=== PATIENT | female | born 1935 | race Caucasian/White ===

== ENCOUNTER → 2016-04-28 | Outpatient (CLI) | payer MEDICARE, BC ==
--- NOTE | 2016-04-28 16:44 | NM ---
EXAMINATION: Nuclear medicine myocardial perfusion study HISTORY: Heart disease. PROCEDURE: Following intravenous administration of 0.4 mg of Lexiscan and 27.5 mCi of technetium 99m sestamib i, stress SPECT images including gating imaging was performed. FINDINGS: Stress myocardial SPECT images demonstrates a small area of moderately decreased perfusion along the anteroseptal wall involving the midportion. Review of gated images demonstrates normal wall motion, contractility and wall thickening. The left ventricular ejection fraction is 73 %. The left ventricular chamber size is normal. IMPRESSION: 1. Focal area of decreased perfusion along the anterior wall, correlate with rest imaging. 2. Normal ventricular chamber size and function with ejection fraction of 73 %.
--- NOTE | 2016-04-28 20:24 | PCM.PRNOTE ---
- Free Text/Narrative Note: Patient was supervised today during infusion portion of the stress test. The patient received Regadenoson 0.4 mg IV and nuclear agent using standard protocol. Baseline blood pressure is 172/70 with a heart rate 63 EKG sinus rhythm without ST abnormalities Vital signs at injection: Peak blood pressure 169/66 with a heart rate of 81 Vital signs at 4 minutes post injection: Peak blood pressure 168/68 with a heart rate of 70 EKG sinus rhythm without further ST changes Patient complains of abdominal cramps and headaches spontaneously resolved Adverse effects from Lucille scan none Test done due to end of protocol Impression 1. electrocardiographically nondiagnostic for ischemia due to chemical protocol 2. nuclear imaging pending
--- NOTE | 2016-04-29 10:39 | PCM.PRNOTE ---
- Free Text/Narrative Note: Entry in error
== END ==
LOC: MW.NM 08:31
PROVIDERS: ATTEND Nurse Practitioner Family
DX: I25.119 Atherosclerotic heart disease of native coronary artery with unspecified angina pectoris (principal); I25.10 Atherosclerotic heart disease of native coronary artery without angina pectoris
CPT/HCPCS: 78451; 93017; A9500; J2785

== ENCOUNTER → 2016-06-08 | Outpatient (CLI) | payer MEDICARE, BC | LOC: MW.CHNEURO 08:00 | PROVIDERS: ATTEND Psychiatry & Neurology Neuromuscular Medicine | DX: G62.9 Polyneuropathy, unspecified (principal) | CPT/HCPCS: 99204 ==

== ENCOUNTER 2016-06-11 10:15 | Emergency (ER) | payer MEDICARE, BC ==
[2016-06-11] MEDS ORDERED: Sodium Chloride 0.9% 1,000 ML IV ONE (10:22)
[2016-06-11 11:00] LABS: CHLORIDE,CL 106 mmol/L (98-110); SODIUM,NA 141 mmol/L (136-146)
--- NOTE | 2016-06-11 11:11 | EDM.PDOC ---
ED HISTORY OF PRESENT ILLNESS - General Chief Complaint: Cardiovascular Problem Stated Complaint: LEFT LEG SWOLLEN AND PAINFUL Time Seen by Provider: 06/11/16 10:40 Source of Information: Reports: Patient History Limitations: Reports: No limitations - History of Present Illness INITIAL COMMENTS - FREE TEXT/NARRATIVE: History of present illness: [80-year-old female presenting from [facility] with decreased O2 saturations and protracted history of problems with DVTs and history of PE. Apparently clinic did call and give a brief report about the patient and sent him here and patient reiterated the same history of bedside. Patient was 88% on room air and with 3 L of O2 increased into the mid 90% .] Review of systems: As per history of present illness and below otherwise all systems reviewed and negative. Past medical history: As per history of present illness and as reviewed below otherwise noncontributory. Surgical history: As per history of present illness and as reviewed below otherwise noncontributory. Social history: No reported history of drug or alcohol abuse. Family history: As per history of present illness and as reviewed below otherwise noncontributory. Physical exam: HEENT: Atraumatic, normocephalic, pupils reactive, negative for conjunctival pallor or scleral icterus, mucous membranes moist, throat clear, neck supple, nontender, trachea midline. Lungs: Clear to auscultation, breath sounds equal bilaterally, noted to be slightly diminished, chest nontender. Heart: S1S2, regular, negative for clicks, rubs, or JVD. Abdomen: Soft, nondistended, nontender. Negative for masses or hepatosplenomegaly. Negative for costovertebral tenderness. Pelvis: Stable nontender. Genitourinary: Deferred. Rectal: Deferred. Extremities: Atraumatic, negative for cords or calf pain. Neurovascular unremarkable. Neuro: Awake, alert, oriented. Cranial nerves II through XII unremarkable. Cerebellum unremarkable. Motor and sensory unremarkable throughout. Exam nonfocal. Diagnostics: [CBC, CMP, d-dimer, CTA] Therapeutics: [IV fluid] Impression: [Saddle PE] Plan: [Transferred to [facility] ER to ER Dr Branch accepting] Definitive disposition and diagnosis as appropriate pending reevaluation and review of above. - Related Data Allergies/ADRs: Allergies Allergy/AdvReac Type Severity Reaction Status Date / Time acetaminophen Allergy Disorientat Verified 06/11/16 10:24 [From Darvocet-N 100] ion hydrocodone bitartrate Allergy Nausea and Verified 06/11/16 10:24 [From Vicoprofen] Vomiting ibuprofen [From Vicoprofen] Allergy Nausea and Verified 06/11/16 10:24 Vomiting Penicillins Allergy Cannot Verified 06/11/16 10:24 Remember propoxyphene napsylate Allergy Disorientat Verified 06/11/16 10:24 [From Darvocet-N 100] ion Home Meds: Home Meds Furosemide 20 mg PO DAILY 12/23/13 [History] Losartan Potassium 25 mg PO DAILY 12/23/13 [History] Metoprolol Tartrate [Lopressor] 25 mg PO BID 12/23/13 [History] Nitroglycerin [Nitrostat] 0.4 mg SL ASDIRECTED PRN 12/23/13 [History] Aspirin [Adult Low Dose Aspirin EC] 81 mg PO DAILY 09/18/15 [History] atorvaSTATin [Lipitor] 20 mg PO DAILY 04/06/16 [History] Isosorbide Mononitrate [Isosorbide Mononitrate ER] 30 mg PO DAILY 04/07/16 [ History] Omeprazole 20 mg PO BID 04/07/16 [History] Citalopram [Celexa] 10 mg PO DAILY 06/11/16 [History] Hydrochlorothiazide 25 mg PO DAILY 06/11/16 [History] Past Medical History HEENT History: Reports: Cataract Other HEENT History: wears glasses Cardiovascular History: Reports: CAD, High cholesterol, Hypertension, Stents Other Cardiovascular History: Anti-coagulant therapy since for DVT (Rt. leg ) associated with PE Respiratory History: Reports: None Gastrointestinal History: Reports: GERD, Hiatal hernia Other Gastrointestinal History: Heartburn Genitourinary History: Reports: Renal calculus Other Genitourinary History: Recent anti-biotic for UTI's and 'dark colored urine' [employer] History: Reports: None Musculoskeletal History: Reports: Fracture Other Musculoskeletal History: bilateral wrists Neurological History: Reports: None Psychiatric History: Reports: None Other Psychiatric History: Reports some anxiety of recent Endocrine/Metabolic History: Reports: None Hematologic History: Reports: Blood transfusion(s) Immunologic History: Reports: None Oncologic (Cancer) History: Reports: Basal cell carcinoma, Breast Dermatologic History: Reports: None - Infectious Disease History Infectious Disease History: Reports: Chicken pox, Measles, Mumps - Past Surgical History Head Surgeries/Procedures: Reports: None Other Cardiovascular Surgeries/Procedures: 2 stents placed in July 2013, no chest pain or SOB since Other Female Surgeries/Procedures: bilateral Mastectomy, bilateral S&O Other Musculoskeletal Surgeries/Procedures:: right wrist Other Oncologic Surgeries/Procedures: lesion removed from nose Social & Family History - Family History Family Medical History: Noncontributory - Tobacco Use Smoking Status *Q: Never Smoker Second Hand Smoke Exposure: No - Caffeine Use Caffeine Use: Reports: None - Alcohol Use Days Per Week of Alcohol Use: 0 Number of Drinks Per Day: 0 Total Drinks Per Week: 0 - Recreational Drug Use Recreational Drug Use: No Drug Use in Last 12 Months: No ED ROS GENERAL - Review of Systems Review Of Systems: See Below (The history of present illness) ED EXAM, GENERAL - Physical Exam Exam: See Below (See history of present illness) Course - Vital Signs Last Recorded V/S: Last Vital Signs Temp 36.6 C 06/11/16 12:56 Pulse 65 06/11/16 13:45 Resp 16 06/11/16 13:45 BP 166/71 H 06/11/16 13:45 Pulse Ox 97 06/11/16 13:45 - Orders/Labs/Meds Orders: Active Orders 24 hr Category Date Time Status Heparin 74669 Units in D5W @ 15 Units/KG/HR (500ml) Med 06/11/16 14:00 Ordered Premix Heparin Sodium/D5W [Heparin 25,000 Units in D5W 500 ML] 500 ml IV TITRATE Medication Orders Heparin Sodium/Dextrose (Heparin 25,000 Units In D5w 500 Ml) 500 mls @ 24.222 mls/hr IV TITRATE DEVORAH; 15 UNITS/KG/HR PRN Reason: Protocol Labs: Laboratory Tests 06/11/16 06/11/16 06/11/16 Range/Units 10:30 10:30 10:30 WBC 14.00 H (4.0-11.0) K/uL RBC 4.87 (4.30-5.90) M/uL Hgb 13.6 (12.0-16.0) g/dL Hct 44.0 (36.0-46.0) % MCV 90.3 (80.0-98.0) fL MCH 27.9 (27.0-32.0) pg MCHC 30.9 L (31.0-37.0) g/dL RDW Std Deviation 51.5 (28.0-62.0) fl RDW Coeff of Jo Ann 16 H (11.0-15.0) % Plt Count 136 L (150-400) K/uL MPV 11.50 (7.40-12.00) fL Neut % (Auto) 73.6 (48.0-80.0) % Lymph % (Auto) 10.5 L (16.0-40.0) % Butts % (Auto) 14.0 (0.0-15.0) % Eos % (Auto) 1.6 (0.0-7.0) % Baso % (Auto) 0.3 (0.0-1.5) % Neut # (Auto) 10.3 H (1.4-5.7) K/uL Lymph # (Auto) 1.5 (0.6-2.4) K/uL Butts # (Auto) 2.0 H (0.0-0.8) K/uL Eos # (Auto) 0.2 (0.0-0.7) K/uL Baso # (Auto) 0.0 (0.0-0.1) K/uL Nucleated RBC % 0.0 /100WBC Nucleated RBCs # 0 K/uL D-Dimer, Quantitative 18.71 H (0.0-0.52) mg/LFEU Sodium 141 (136-146) mmol/L Potassium 4.0 (3.5-5.1) mmol/L Chloride 106 (98-110) mmol/L Carbon Dioxide 24 (21-31) mmol/L BUN 13 (6.0-23.0) mg/dL Creatinine 0.9 (0.6-1.5) mg/dL Est Cr Clr Drug Dosing 45.89 mL/min Estimated GFR (MDRD) > 60.0 ml/min Glucose 118 H (60-110) mg/dL Calcium 9.7 (8.8-10.8) mg/dL Total Bilirubin 1.4 (0.1-1.5) mg/dL AST 21 (5-40) IU/L ALT 11 (8-54) IU/L Alkaline Phosphatase 66 (40-150) Total Protein 7.8 (6.0-8.0) g/dL Albumin 4.1 (3.4-4.8) g/dL Globulin 3.7 H (2.0-3.5) g/dL Albumin/Globulin Ratio 1.1 L (1.3-2.8) Meds: Medications Generic Name Dose Route Start Last Admin Trade Name Ezraq PRN Reason Stop Dose Admin Heparin Sodium/Dextrose 500 mls @ 24.222 mls/hr 06/11/16 14:00 Heparin 25,000 Units In D5w 500 Ml IV TITRATE DEVORAH Protocol 15 UNITS/KG/HR Discontinued Medications Generic Name Dose Route Start Last Admin Trade Name Freq PRN Reason Stop Dose Admin Sodium Chloride 1,000 mls @ 250 mls/hr 06/11/16 10:22 06/11/16 10:35 Normal Saline IV 06/11/16 14:21 250 mls/hr STAT ONE Administration Iopamidol 50 ml 06/11/16 12:02 06/11/16 12:03 Isovue Multipack-370 (76%) IVPUSH 06/11/16 12:03 50 ml ONETIME STA Administration Departure - Departure Time of Disposition: 14:26 Disposition: DC/Tfer to Acute Hospital 02 Reason for Transfer *Q: Other (Higher level of care) Condition: good Clinical Impression: Pulmonary emboli Qualifiers: Pulmonary embolism type: saddle Chronicity: acute Acute cor pulmonale presence : without acute cor pulmonale Qualified Code(s): I26.92 - Saddle embolus of pulmonary artery without acute cor pulmonale Forms: ED Department Discharge - My Orders Last 24 Hours: My Active Orders 06/11/16 14:00 Heparin 20122 Units in D5W @ 15 Units/KG/HR (500ml) Premix Heparin Sodium/D5W [ Heparin 25,000 Units in D5W 500 ML] 500 ml IV TITRATE - Assessment/Plan Last 24 Hours: My Active Orders 06/11/16 14:00 Heparin [id number] Units in D5W @ 15 Units/KG/HR (500ml) Premix Heparin Sodium/D5W [ Heparin 25,000 Units in D5W 500 ML] 500 ml IV TITRATE
[2016-06-11] MEDS ORDERED: Iopamidol 755 MG/ML 500 ML Multipack Bottle IVPUSH STA (12:02)
--- NOTE | 2016-06-11 13:39 | CT ---
EXAMINATION: CTA chest HISTORY: Evaluate for PE COMPARISON: Radiographs dated 04/06/2016 TECHNIQUE: Axial CT images obtained through the chest following the administration of 50 mL of Isovu e-370. Coronal and sagittal reconstructions obtained. FINDINGS: Scattered interstitial prominence and reticulation noted most prominent within the lung ba ses. No pleural effusion or pneumothorax. There is a large saddle embolus noted within the pulmonary arteries. Thoracic aorta is normal in caliber. The the RV and LV ratio is 1.4. There is a large hia balaji hernia. No mediastinal, hilar, or axillary lymphadenopathy. Coronary artery calcifications are n oted. The central airways are clear. The visualized images of the upper abdomen appear otherwise unremarkable. No suspicious osseous abno rmalities identified. IMPRESSION: 1. Large saddle pulmonary embolism. 2. Enlarged right ventricle suggesting underlying right heart strain. 3. Large hiatal hernia. 4. Chronic pulmonary interstitial prominence.
[2016-06-11 13:46] VITALS: BP 166/71
[2016-06-11] MEDS ORDERED: Heparin Sodium/D5W 500 ML IV SCH (14:00)
== END 2016-06-11 14:42 ==
LOC: MW.ED 10:15
DX: I26.92 Saddle embolus of pulmonary artery without acute cor pulmonale (principal); I25.10 Atherosclerotic heart disease of native coronary artery without angina pectoris; E78.00 Pure hypercholesterolemia, unspecified; I10 Essential (primary) hypertension; K21.9 Gastro-esophageal reflux disease without esophagitis; Z98.890 Other specified postprocedural states; Z88.6 Allergy status to analgesic agent; Z88.0 Allergy status to penicillin; Z88.5 Allergy status to narcotic agent; Z79.899 Other long term (current) drug therapy; Z79.82 Long term (current) use of aspirin
CPT/HCPCS: 71275; 80053; 85025; 85379; 96360; 96361; 99285; J7040; Q9967; 99283

== ENCOUNTER 2016-12-24 11:26 | Day surgery (SDC) | payer MEDICARE, BC ==
[2016-12-24] MEDS ORDERED: Ropivacaine 0.5% 5 MG/ML 30 ML SDV ONE (12:04)
[2016-12-24] MEDS ORDERED: Betamethasone Acetate/Betamethasone Sod Phosphate 30 MG/5 ML MDV ONE (12:04)
[2016-12-24] MEDS ORDERED: Lidocaine 2% 5 ML SDV ONE (12:04)
[2016-12-24] MEDS ORDERED: Iopamidol 408 MG/ML 50 ML SDV ONE (12:04)
--- NOTE | 2016-12-24 18:13 | OR ---
SURGEON: Ruthie Wing D.O. DATE OF PROCEDURE: 12/24/2016 OR STAFF PRESENT: 1. Marcus Black RN. 2. Michelle Madison RN. 3. Amy Ashraf RT. WOUND CLASSIFICATION: I. PREOPERATIVE DIAGNOSIS: Left hip osteoarthritis. POSTOPERATIVE DIAGNOSIS: Left hip osteoarthritis. PROCEDURES PERFORMED: 1. Left intraarticular hip injection. 2. Fluoroscopic guidance for needle placement. 3. Local with oral Valium for sedation. SCREENING QUESTIONS: The patient answered "No" to all the following questions: 1. Are you allergic to iodine, Betadine, or latex? 2. Do you have a bleeding disorder? 3. Do you have any joint replacements, heart valve replacements or a pacemaker? 4. Are you allergic to anti-inflammatories? 5. Are you on any blood thinners? 6. Do you have any current local or systemic infections? DESCRIPTION OF PROCEDURE: The patient had the procedure thoroughly explained including all possible risks, benefits and alternatives. Consent was signed in my clinic indicating understanding and willingness to proceed. The patient presented to [facility] and was escorted to the dressing room to disrobe and change into a hospital gown. Preoperative vital signs were taken and stable. The patient reported that Valium was taken prior to the procedure. The patient was brought to the procedure room and placed in the supine position on the procedure room table. The hip landmarks were identified for the intra- articular injection and the femoral pulse was palpated and marked. The skin was marked long term between the femoral pulse and greater trochanter for a skin wheal. The skin was sterilely prepped with ChloraPrep and draped. All personnel in the operating room were dressed in appropriate attire including surgical scrubs, head and shoe covers. This was to ensure sterility while in the treatment room. During the time fluoroscopy was in use, all personnel in the operating room wore lead lopez with thyroid collars. Sterile technique was used during the procedure. The fluoroscope was placed for the intra-articular hip injection. There were no signs of infection at the site for needle insertion. The skin was anesthetized with 2% Lidocaine with a 27-gauge 1.5 inch needle. Then using a 22-gauge 3.5 inch spinal needle, I advanced to the capsule of the hip joint, a pop was felt. Under direct fluoroscopic guidance verifying needle positioning, 0.2 cubic centimeters increments of IsoVue-200 dye was injected and shown to outline the intra-articular space. No intravascular flow pattern was observed under live fluoroscopy. After negative aspiration, a mixture of 0.5% Ropivacaine, 2% Lidocaine, and 12 milligrams of Celestone was slowly injected in small increments after negative aspiration of heme. No paresthesias were noted. The needle was cleared prior to removal from the skin and no adverse reactions were noted. The patient was then brought to the recovery room awake and in good condition by my staff. After a brief stay in the recovery room, the patient was discharged to home. Both oral and written discharge and followup instructions were given to the patient. The patient will follow up in the clinic in two to three weeks postprocedure to evaluate the efficacy. The patient verbalized understanding including understanding those signs and symptoms that would require emergency care and knows how to contact the office if there are any problems or questions in the meantime. PREOPERATIVE PAIN: 4-10/10. POSTOPERATIVE PAIN: 1/10. FOLLOWUP: Follow up in the Pain Clinic in 3 weeks. NAEEM / MUKUL /[id number]
== END 2016-12-24 13:40 ==
LOC: MW.SDS 11:26
PROVIDERS: ATTEND Anesthesiology
DX: M16.12 Unilateral primary osteoarthritis, left hip (principal); F41.9 Anxiety disorder, unspecified; F32.9 Major depressive disorder, single episode, unspecified; K21.9 Gastro-esophageal reflux disease without esophagitis; I10 Essential (primary) hypertension; E78.00 Pure hypercholesterolemia, unspecified; M17.10 Unilateral primary osteoarthritis, unspecified knee; M81.0 Age-related osteoporosis without current pathological fracture; G62.89 Other specified polyneuropathies; Z85.828 Personal history of other malignant neoplasm of skin; Z87.442 Personal history of urinary calculi; Z87.440 Personal history of urinary (tract) infections; Z85.3 Personal history of malignant neoplasm of breast; Z86.718 Personal history of other venous thrombosis and embolism; Z79.01 Long term (current) use of anticoagulants; Z79.82 Long term (current) use of aspirin; Z79.899 Other long term (current) drug therapy; Z88.0 Allergy status to penicillin; Z88.5 Allergy status to narcotic agent; Z96.649 Presence of unspecified artificial hip joint; Z98.49 Cataract extraction status, unspecified eye; Z90.10 Acquired absence of unspecified breast and nipple; Z90.49 Acquired absence of other specified parts of digestive tract; Z90.710 Acquired absence of both cervix and uterus; Z90.721 Acquired absence of ovaries, unilateral; Z98.890 Other specified postprocedural states; G62.9 Polyneuropathy, unspecified; G89.4 Chronic pain syndrome
CPT/HCPCS: 20610; G0463; J0702; J2795; Q9966

== ENCOUNTER 2020-10-10 15:36 | Inpatient (IN) | payer MEDICARE, BC ==
[2020-10-10] MEDS ORDERED: Sodium Chloride 0.9% 10 ML Syringe FLUSH PRN (16:04)
[2020-10-10] MEDS ORDERED: HYDROmorphone 1 MG/ML Syringe IVPUSH ONE (16:04)
[2020-10-10] MEDS ORDERED: Ondansetron 4 MG/2 ML SDV IVPUSH ONE (16:04)
[2020-10-10] MEDS ORDERED: Sodium Chloride 0.9% 2.5 ML Syringe FLUSH PRN (16:04)
[2020-10-10] MEDS ORDERED: Diltiazem 100 MG in Sodium Chloride 0.9% 100 ML IV SCH (16:30)
--- NOTE | 2020-10-10 17:19 | EDM.PDOC ---
ED HPI GENERAL MEDICAL PROBLEM - General Chief Complaint: Lower Extremity Injury/Pain Stated Complaint: SWOLLEN FOOT Time Seen by Provider: 10/10/20 15:58 - History of Present Illness INITIAL COMMENTS - FREE TEXT/NARRATIVE: HISTORY AND PHYSICAL: History of present illness: This is an 84-year-old female with a history significant for DVT x2 in the past with a PE, history of hip replacement, history of hypertension, history of hypercholesterolemia, history of basal cell CA of the nose, denies any history of gout, denies any history of atrial fibrillation/atrial flutter, denies any history of coronary artery disease, who presents ER today complaining of pain and swelling to her right ankle and foot x2 days. Patient denies any recent trauma or injury to her foot. Patient denies any excessive ambulation or walking. Patient denies any change in her shoes or footwear. Patient reports that she normally ambulates with a cane and has been doing so. Patient denies any history of gout. Patient denies any recent fevers, shakes, chills, nausea, vomiting, diarrhea, dysuria, frequency, urgency, chest pain, shortness of breath, abdominal pain. Patient denies any dizziness, palpitations, syncope. Patient has any history of thyroid disease. Patient denies any hemoptysis. Patient denies any Covid exposures or concerns. Patient denies any URI symptoms, cough, cold, congestion. Patient reports that she has had her Covid vaccination. Review of systems: As per history of present illness and below otherwise all systems reviewed and negative. Past medical history: As per history of present illness and as reviewed below otherwise noncontributory. Surgical history: As per history of present illness and as reviewed below otherwise noncontributory. Social history: No reported history of drug abuse. Family history: As per history of present illness and as reviewed below otherwise noncontributory. Physical exam: This patient was seen and evaluated during the 2019 SARS-CoV-2 novel coronavirus pandemic period. Community viral transmission is ongoing at time of this encounter and the emergency department is operating under pandemic response procedures. Constitutional: Patient is oriented to person, place, and time. Appears well- developed and well-nourished. No distress. HEENT: Moist mucous membranes Head: Normocephalic and atraumatic. No JVD. Eyes: Right eye exhibits no discharge. Left eye exhibits no discharge. No scleral icterus Neck: Normal range of motion. No tracheal deviation present. Cardiovascular: Regular rhythm with an accelerated rate of approximately 150 bpm. Utilizing carotid sinus massage, patient's heart rate slows to approximately 100 bpm but then speeds back up once carotid sinus massage is removed. Pulmonary: Effort normal, no respiratory distress. Abdominal: No distention Musculoskeletal: Normal range of motion Neurologic: Alert and oriented to person, place and time. Skin: [place], warm and dry. No diaphoresis. Psychiatric: Normal mood and affect. Behavior is normal. Judgment and thought content normal. Nursing note and vital signs have been reviewed Patient's ER physical exam is significant for swelling and tenderness to the right foot and ankle. Patient has no warmth, erythema. Patient has some increased swelling to the right calf. Diagnostics: Ultrasound of right lower extremity: No DVT Therapeutics: Assessment and plan: This is a 84-year-old female who presents to the ER today complaining of right ankle foot pain and was noted to be markedly tachycardic. An EKG obtained reveals the patient is in SVT with a heart rate of 145. Carotid sinus massage was performed while patient was on the monitor which unmasked flutter waves when the ventricular rate was slowed to approximately 100 bpm. Patient still had flutter waves at approximately 300/min. After carotid sinus massage was removed patient's heart rate sped back up to under 50 bpm. 1. With regards to the patient's right foot and ankle pain, etiology of this is unclear at this time. It may be related to gout or arthritis. May be related to an occult injury at the patient does not recall. Patient had an ultrasound of her right lower extremity which revealed no evidence of acute DVT. Patient's physical exam reveals no concerning evidence for cellulitis or septic joint. Patient has been given Zofran and Dilaudid 0.5 mg IV to assist with pain control during the ultrasound. Patient will have labs drawn including a uric acid (although of low sensitivity and specificity for gout). 6:39 PM: Patient has a x-ray that reveals a possible lateral cuneiform and navicular bone cortical irregularity. I have read discussed with the patient and she does not recall injuring it recently. Patient is tender over those bones on exam with soft tissue swelling laterally. I will obtain a CT scan of the foot given that the patient does not recall having any injury to her foot or ankle. Again I have low suspicion with a septic joint given that the patient does not have any fever, warmth, erythema to her ankle. Patient does have edema and tenderness with active and passive range of motion. 2. With regard to the patient's SVT it appears to be most consistent with atrial flutter with RVR. Patient will have basic labs drawn including a troponin, CBC, CMP, BNP, TSH. Patient will get started on Cardizem IV to assist with rate control will need to be admitted to the hospital. 6:39 PM: Patient currently the heart rate of 100 on Cardizem 10 mg/h IV. 3. Elevated WBC count. Etiology of which is unclear but may be related to her SVT. Patient will have a urinalysis as well as a chest x-ray added. We will obtain a CT scan of the right foot. Case was discussed with Dr. Montoya who is agreed to assist this with inpatient care of this patient. Definitive disposition and diagnosis as appropriate pending reevaluation and review of above. Right Foot Pain Score (Numeric/FACES): 10 - Related Data Allergies Allergy/AdvReac Type Severity Reaction Status Date / Time acetaminophen Allergy Disorientat Verified 10/10/20 15:55 [From Darvocet-N 100] ion hydrocodone bitartrate Allergy Nausea and Verified 10/10/20 15:55 [From Vicoprofen] Vomiting ibuprofen [From Vicoprofen] Allergy Nausea and Verified 10/10/20 15:55 Vomiting Penicillins Allergy Cannot Verified 10/10/20 15:55 Remember propoxyphene napsylate Allergy Disorientat Verified 10/10/20 15:55 [From Darvocet-N 100] ion Home Meds: Home Meds Furosemide 20 mg PO DAILY 12/23/13 [History] Losartan Potassium 25 mg PO DAILY 12/23/13 [History] Metoprolol Tartrate [Lopressor] 25 mg PO BID 12/23/13 [History] Nitroglycerin [Nitrostat] 0.4 mg SL ASDIRECTED PRN 12/23/13 [History] Aspirin [Adult Low Dose Aspirin EC] 81 mg PO DAILY 09/18/15 [History] atorvaSTATin [Lipitor] 20 mg PO DAILY 04/06/16 [History] Isosorbide Mononitrate [Isosorbide Mononitrate ER] 30 mg PO DAILY 04/07/16 [History] Omeprazole 20 mg PO BID 04/07/16 [History] Citalopram [Celexa] 10 mg PO DAILY 06/11/16 [History] Hydrochlorothiazide 25 mg PO DAILY 06/11/16 [History] Past Medical History HEENT History: Reports: Cataract Other HEENT History: wears glasses Cardiovascular History: Reports: CAD, High Cholesterol, Hypertension, Stents Other Cardiovascular History: Anti-coagulant therapy since for DVT (Rt. leg) associated with PE Respiratory History: Reports: None Gastrointestinal History: Reports: GERD, Hiatal Hernia Other Gastrointestinal History: Heartburn Genitourinary History: Reports: Renal Calculus Other Genitourinary History: Recent anti-biotic for UTI's and 'dark colored urine' POUL[employer]IMMER History: Reports: None Musculoskeletal History: Reports: Fracture Other Musculoskeletal History: bilateral wrists Neurological History: Reports: None Psychiatric History: Reports: None Other Psychiatric History: Reports some anxiety of recent Endocrine/Metabolic History: Reports: None Hematologic History: Reports: Blood Transfusion(s) Immunologic History: Reports: None Oncologic (Cancer) History: Reports: Basal Cell Carcinoma, Breast Dermatologic History: Reports: None - Infectious Disease History Infectious Disease History: Reports: Chicken Pox, Measles, Mumps - Past Surgical History Head Surgeries/Procedures: Reports: None HEENT Surgical History: Reports: Cataract Surgery Other HEENT Surgeries/Procedures: Left cataract with implant Cardiovascular Surgical History: Reports: Coronary Artery Stent Other Cardiovascular Surgeries/Procedures: 2 stents placed in July 2013, no chest pain or SOB since Respiratory Surgical History: Reports: None GI Surgical History: Reports: Colostomy Female Surgical History: Reports: Mastectomy Other Female Surgeries/Procedures: bilateral Mastectomy, bilateral S&O Endocrine Surgical History: Reports: None Musculoskeletal Surgical History: Reports: Hip Replacement, ORIF Other Musculoskeletal Surgeries/Procedures:: right wrist Oncologic Surgical History: Reports: Biopsy of Breast, Mastectomy Other Oncologic Surgeries/Procedures: lesion removed from nose Social & Family History - Family History Family Medical History: No Pertinent Family History - Caffeine Use Caffeine Use: Reports: None - Recreational Drug Use Recreational Drug Use: No Review of Systems - Review of Systems Review Of Systems: See Below ED EXAM, GENERAL - Physical Exam Exam: See Below #1 Interpretation EKG Interpretation Comments: October 10, 2020 4 PM date of EKG EKG: As interpreted by ER physician: Lidia: Nonspecific ST-T wave abnormalities Normal axis Left bundle branch block Prolonged QRS No evidence of ST elevation OK Atrial flutter with a heart rate of 145 Course - Vital Signs Last Recorded V/S: Last Vital Signs Temp 98.6 F 10/10/20 18:30 Pulse 140 H 10/10/20 18:21 Resp 18 10/10/20 18:21 BP 111/72 10/10/20 18:21 Pulse Ox 97 10/10/20 18:21 - Orders/Labs/Meds Orders: Active Orders 24 hr Category Date Time Status Patient Status [ADT] Routine ADT 10/10/20 18:36 Ordered EKG 12 Lead [EKG Documentation Completion] [RC] STAT Care 10/10/20 16:37 Active Chest 2V [CR] Stat Exams 10/10/20 18:34 Ordered Foot wo Cont Rt [CT] Stat Exams 10/10/20 18:35 Ordered B-TYPE NATRIURETIC PEPTIDE,BNP [CHEM] Stat Lab 10/10/20 17:15 Received UA W/PEDRO RFLX IF INDICATED [URIN] Stat Lab 10/10/20 18:35 Ordered Diltiazem [Cardizem] 100 mg Med 10/10/20 16:30 Active Sodium Chloride 0.9% [Normal Saline] 100 ml IV NOW Sodium Chloride 0.9% [Saline Flush] Med 10/10/20 16:04 Active 10 ml FLUSH ASDIRECTED PRN Sodium Chloride 0.9% [Saline Flush] Med 10/10/20 16:04 Active 2.5 ml FLUSH ASDIRECTED PRN DME for Discharge [COMM] Stat Oth 10/10/20 18:38 Ordered DME for Discharge [COMM] Stat Oth 10/10/20 18:39 Ordered Saline Lock Insert [OM.PC] Stat Oth 10/10/20 16:04 Ordered Medication Orders Diltiazem HCl 100 mg/ Sodium (Chloride) 100 mls @ 5 mls/hr IV NOW [facility]; Protocol Last Titration: 10/10/20 18:25 Dose: 10 mg/hr, 10 mls/hr Documented by: Admin: 10/10/20 17:16 Dose: 5 mg/hr, 5 mls/hr Documented by: CHARLENE Sodium Chloride (Sodium Chloride 0.9% 10 Ml Syringe) 10 ml FLUSH ASDIRECTED PRN PRN Reason: Keep Vein Open Last Admin: 10/10/20 17:16 Dose: 10 ml Documented by: CHARLENE Sodium Chloride (Sodium Chloride 0.9% 2.5 Ml Syringe) 2.5 ml FLUSH ASDIRECTED PRN PRN Reason: Keep Vein Open Last Admin: 10/10/20 17:16 Dose: 2.5 ml Documented by: CHARLENE Labs: Laboratory Tests 10/10/20 10/10/20 10/10/20 Range/Units 17:15 17:15 17:15 WBC 16.35 H (4.0-11.0) K/uL RBC 4.78 (4.30-5.90) M/uL Hgb 14.4 (12.0-16.0) g/dL Hct 44.8 (36.0-46.0) % MCV 93.7 (80.0-98.0) fL MCH 30.1 (27.0-32.0) pg MCHC 32.1 (31.0-37.0) g/dL RDW Std Deviation 50.0 (28.0-62.0) fl RDW Coeff of Jo Ann 15 (11.0-15.0) % Plt Count 210 (150-400) K/uL MPV 12.00 (7.40-12.00) fL Neut % (Auto) 75.5 (48.0-80.0) % Lymph % (Auto) 9.5 L (16.0-40.0) % [place]hing % (Auto) 14.1 (0.0-15.0) % Eos % (Auto) 0.7 (0.0-7.0) % Baso % (Auto) 0.2 (0.0-1.5) % Neut # (Auto) 12.3 H (1.4-5.7) K/uL Lymph # (Auto) 1.6 (0.6-2.4) K/uL Pershing # (Auto) 2.3 H (0.0-0.8) K/uL Eos # (Auto) 0.1 (0.0-0.7) K/uL Baso # (Auto) 0.0 (0.0-0.1) K/uL Nucleated RBC % 0.0 /100WBC Nucleated RBCs # 0 K/uL Sodium 141 (136-145) mmol/L Potassium 4.1 (3.5-5.1) mmol/L Chloride 100 (98-107) mmol/L Carbon Dioxide 29.4 (21.0-32.0) mmol/L BUN 22 H (7.0-18.0) mg/dL Creatinine 1.3 H (0.6-1.0) mg/dL Est Cr Clr Drug Dosing 30.77 mL/min Estimated GFR (MDRD) 38.9 ml/min Glucose 116 H (74-106) mg/dL Uric Acid 7.8 H (2.6-7.2) mg/dL Calcium 9.7 (8.5-10.1) mg/dL Total Bilirubin 0.8 (0.2-1.0) mg/dL AST 22 (15-37) IU/L ALT 22 (14-63) IU/L Alkaline Phosphatase 88 (46-116) U/L Troponin I < 0.050 (0.000-0.056) ng/mL C-Reactive Protein 17.80 H (0.00-0.90) mg/dL Total Protein 7.7 (6.4-8.2) g/dL Albumin 3.5 (3.4-5.0) g/dL Globulin 4.2 H (2.6-4.0) g/dL Albumin/Globulin Ratio 0.8 L (0.9-1.6) TSH, Ultra Sensitive (0.36-3.74) uIU/mL 10/10/20 Range/Units 17:15 WBC (4.0-11.0) K/uL RBC (4.30-5.90) M/uL Hgb (12.0-16.0) g/dL Hct (36.0-46.0) % MCV (80.0-98.0) fL MCH (27.0-32.0) pg MCHC (31.0-37.0) g/dL RDW Std Deviation (28.0-62.0) fl RDW Coeff of Jo [place] (11.0-15.0) % Plt Count (150-400) K/uL MPV (7.40-12.00) fL Neut % (Auto) (48.0-80.0) % Lymph % (Auto) (16.0-40.0) % [place] % (Auto) (0.0-15.0) % Eos % (Auto) (0.0-7.0) % Baso % (Auto) (0.0-1.5) % Neut # (Auto) (1.4-5.7) K/uL Lymph # (Auto) (0.6-2.4) K/uL Pershing # (Auto) (0.0-0.8) K/uL Eos # (Auto) (0.0-0.7) K/uL Baso # (Auto) (0.0-0.1) K/uL Nucleated RBC % /100WBC Nucleated RBCs # K/uL Sodium (136-145) mmol/L Potassium (3.5-5.1) mmol/L Chloride (98-107) mmol/L Carbon Dioxide (21.0-32.0) mmol/L BUN (7.0-18.0) mg/dL Creatinine (0.6-1.0) mg/dL Est Cr Clr Drug Dosing mL/min Estimated GFR (MDRD) ml/min Glucose (74-106) mg/dL Uric Acid (2.6-7.2) mg/dL Calcium (8.5-10.1) mg/dL Total Bilirubin (0.2-1.0) mg/dL AST (15-37) IU/L ALT (14-63) IU/L Alkaline Phosphatase (46-116) U/L Troponin I (0.000-0.056) ng/mL C-Reactive Protein (0.00-0.90) mg/dL Total Protein (6.4-8.2) g/dL Albumin (3.4-5.0) g/dL Globulin (2.6-4.0) g/dL Albumin/Globulin Ratio (0.9-1.6) TSH, Ultra Sensitive 0.58 (0.36-3.74) uIU/mL Meds: Medications Generic Name Dose Route Start Last Admin Trade Name Freq PRN Reason Stop Dose Admin Diltiazem HCl 100 mg/ Sodium 100 mls @ 5 mls/hr 10/10/20 16:30 10/10/20 18:25 Chloride IV 10 mg/hr NOW DEVORAH 10 mls/hr Titration Protocol 5 MG/HR Sodium Chloride 10 ml 10/10/20 16:04 08/12/21 17:16 Sodium Chloride 0.9% 10 Ml Syringe FLUSH 10 ml ASDIRECTED PRN Administration Keep Vein Open Sodium Chloride 2.5 ml 10/10/20 16:04 10/10/20 17:16 Sodium Chloride 0.9% 2.5 Ml Syringe FLUSH 2.5 ml ASDIRECTED PRN Administration Keep Vein Open Discontinued Medications Generic Name Dose Route Start Last Admin Trade Name Freq PRN Reason Stop Dose Admin Hydromorphone HCl 0.5 mg 10/10/20 16:04 10/10/20 17:15 Hydromorphone 1 Mg/Ml Syringe IVPUSH 10/10/20 16:05 0.5 mg ONETIME ONE Administration Ondansetron HCl 4 mg 10/10/20 16:04 10/10/20 17:16 Ondansetron 4 Mg/2 Ml Sdv IVPUSH 10/10/20 16:05 4 mg ONETIME ONE Administration Departure - Departure Time of Disposition: 18:42 Disposition: Admitted As Inpatient 65 Condition: Good Clinical Impression: Right foot pain, Atrial flutter with rapid ventricular response Foot fracture, right Qualifiers: Encounter type: initial encounter Fracture type: closed Qualified Code(s): S92.901A - Unspecified fracture of right foot, initial encounter for closed fracture - Discharge Information Referrals: Everardo Musa MD [Primary Care Provider] - Forms: ED Department Discharge Sepsis Event Note (ED) - Evaluation Sepsis Screening Result: No Definite Risk - Focused Exam Vital Signs: Vital Signs Temp Temp Pulse Resp BP Pulse Ox 10/10/20 18:30 98.6 F 10/10/20 18:21 140 H 18 111/72 97 10/10/20 17:58 140 H 18 109/70 97 10/10/20 17:28 97 10/10/20 17:27 86 L 10/10/20 17:21 97.8 F 140 H 18 110/66 95 10/10/20 16:30 138 H 18 95 10/10/20 15:54 97.3 F 118 H 18 141/108 H 95 - My Orders Last 24 Hours: My Active Orders 10/10/20 16:04 Sodium Chloride 0.9% [Saline Flush] 10 ml FLUSH ASDIRECTED PRN Sodium Chloride 0.9% [Saline Flush] 2.5 ml FLUSH ASDIRECTED PRN Saline Lock Insert [OM.PC] Stat 10/10/20 16:30 Diltiazem [Cardizem] 100 mg Sodium Chloride 0.9% [Normal Saline] 100 ml IV NOW 10/10/20 16:37 EKG 12 Lead [EKG Documentation Completion] [RC] STAT 10/10/20 17:15 B-TYPE NATRIURETIC PEPTIDE,BNP [CHEM] Stat 10/10/20 18:34 Chest 2V [CR] Stat 10/10/20 18:35 Foot wo Cont Rt [CT] Stat UA W/PEDRO RFLX IF INDICATED [URIN] Stat 10/10/20 18:36 Patient Status [ADT] Routine 10/10/20 18:38 DME for Discharge [COMM] Stat 10/10/20 18:39 DME for Discharge [COMM] Stat - Assessment/Plan Last 24 Hours: My Active Orders 10/10/20 16:04 Sodium Chloride 0.9% [Saline Flush] 10 ml FLUSH ASDIRECTED PRN Sodium Chloride 0.9% [Saline Flush] 2.5 ml FLUSH ASDIRECTED PRN Saline Lock Insert [OM.PC] Stat 10/10/20 16:30 Diltiazem [Cardizem] 100 mg Sodium Chloride 0.9% [Normal Saline] 100 ml IV NOW 10/10/20 16:37 EKG 12 Lead [EKG Documentation Completion] [RC] STAT 10/10/20 17:15 B-TYPE NATRIURETIC PEPTIDE,BNP [CHEM] Stat 10/10/20 18:34 Chest 2V [CR] Stat 10/10/20 18:35 Foot wo Cont Rt [CT] Stat UA W/PEDRO RFLX IF INDICATED [URIN] Stat 10/10/20 18:36 Patient Status [ADT] Routine 10/10/20 18:38 DME for Discharge [COMM] Stat 10/10/20 18:39 DME for Discharge [COMM] Stat
--- NOTE | 2020-10-10 17:23 | US ---
INDICATION: Right leg swelling TECHNIQUE: Ultrasound venous duplex right lower extremity. Real-time patel-scale (B mode 2D), color Doppler, and spectral Doppler imaging were performed with compression and augmentation. COMPARISON: None FINDINGS: Deep veins: The right common femoral, femoral, popliteal, and visualized calf veins are fully compressible, demonstrate normal color flow, and normal response to mechanical augmentation. The Duplex Doppler waveforms are normal in appearance. The visualized contralateral left common femoral vein is patent. Superficial veins: The visualized greater saphenous and superficial veins of the leg and calf are unremarkable. Soft tissue: No masses or cysts are identified. No adenopathy is seen. IMPRESSION: 1. No sonographic evidence of acute deep venous thrombosis seen. Dictated by: Loi Le MD @ 10/10/2020 17:22:40 (Electronically Signed)
--- NOTE | 2020-10-10 17:36 | CR ---
INDICATION: Ankle pain and swelling TECHNIQUE: Ankle radiograph 3 views right COMPARISON: None FINDINGS: Bone: On the lateral exam, there is suspected cortical discontinuity in the dorsal cuneiform and navicular bones. Moderate to severe diffuse osteopenia is present. Joint: The ankle mortise joint and the visualized hindfoot joints are unremarkable in appearance. No significant ankle effusion is seen. Soft tissue: Severe lateral soft tissue swelling is noted. No radiopaque foreign bodies are seen. IMPRESSION: 1. On the lateral exam, there is suspected cortical discontinuity in the dorsal cuneiform and navicular bones. If there is a history of trauma, correlation with physical exam for focal tenderness in this region is recommended to exclude an acute fracture. Dictated by Loi Le MD @ 10/10/2020 5:35:30 PM Dictated by: Loi Le MD @ 10/10/2020 17:35:35 (Electronically Signed)
--- NOTE | 2020-10-10 17:40 | CR ---
INDICATION: Foot pain and swelling TECHNIQUE: Foot radiograph 2 views right COMPARISON: None FINDINGS: Bone: On the lateral exam, there is suspected cortical discontinuity along the dorsal cortex of the navicular and cuneiform bones. Moderate to severe diffuse osteopenia is noted. Joint: Evaluation of the digits are severely limited due to hyperextension of the metatarsophalangeal joints and toe flexion on both views. No significant ankle effusion is seen. Soft tissue: Mild diffuse soft tissue edema is present. No radiopaque foreign bodies are seen. IMPRESSION: 1. On the lateral exam, there is suspected cortical discontinuity along the dorsal cortex of the navicular and cuneiform bones. If there is a history of trauma, correlation with physical exam for focal tenderness in this region is recommended to exclude an acute fracture. Dictated by Loi Le MD @ 10/10/2020 5:38:09 PM Dictated by: Loi Le MD @ 10/10/2020 17:38:12 (Electronically Signed)
[2020-10-10 18:03] LABS: BLOOD UREA NITROGEN,BUN 22 mg/dL (7.0-18.0); CARBON DIOXIDE,CO2 29.4 mmol/L (21.0-32.0); CHLORIDE,CL 100 mmol/L (98-107); GLUCOSE RANDOM 116 mg/dL (74-106); POTASSIUM,K 4.1 mmol/L (3.5-5.1); SODIUM,NA 141 mmol/L (136-145)
--- NOTE | 2020-10-10 19:21 | CR ---
Indication: Cough. Technique: Chest, two views. Comparison: CT of the chest, 12/16/2018. Findings: nurse monitoring leads overlie the patient. Volume loss in the left hemithorax, with elevation of the left hemidiaphragm, and atelectasis at the left lung base. This is similar to the chest CT from 11/2018. The right lung and pleural space are clear. There is a large hiatal hernia noted on the lateral projection with an air-fluid level. 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 Bowel gas pattern is normal in the upper abdomen. Impression: 1. Chronic appearing volume loss in the left hemithorax, with a hiatal hernia. 2. No acute airspace disease or significant change when compared with the chest CT from 11/2018. Dictated by Chris Barragan MD @ 10/10/2020 7:19:[address] Chris Barragan @ Oct 10 2020 7:19PM
[2020-10-10] MEDS ORDERED: Albuterol/Ipratropium 3.0-0.5 MG/3 ML Neb Soln NEB PRN (19:27)
[2020-10-10] MEDS ORDERED: Nitroglycerin 0.4 MG Tab.SL SL PRN (19:35)
--- NOTE | 2020-10-10 19:40 | CT ---
Indication: Foot pain and swelling. Abnormal x-ray Technique: Noncontrast CT examination of the foot is performed with spiral technique. 0.8 and 3 mm thick axial and 2 mm thick sagittal and coronal sections are obtained. Please note that all CT scans at this facility use dose modulation, iterative reconstruction, and/or weight-based dosing when appropriate to reduce radiation dose to as low as reasonably achievable. Comparison: Plain films of the foot from today. Findings: There is no sign of fracture of the dorsal aspects of the distal navicular and cuneiforms to correlate with the areas of lucency on today`s plain films. These are probably simply osseous ridge is with mild diffuse osteopenia. There is no sign acute osseous injury of the ankle or foot. There is no sign of fracture or dislocation. There are moderate hammertoe deformities of all the toes. 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 There is mild soft tissue swelling elsewhere in the ankle. There is mild diffuse swelling of the foot with mild soft tissue stranding of the subcutaneous fat. This suggests cellulitis. There is no sign of any soft tissue gas or radiopaque foreign body. Impression: No sign of any acute osseous injury, specifically with no sign of any fracture of the dorsal navicular or cuneiforms. 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 Moderate soft tissue swelling overlying the lateral malleolus and mild diffuse swelling of the ankle, with no sign of any fracture. Mild diffuse subcutaneous swelling and edema involving the foot, consistent with cellulitis. No sign of any abscess or foreign body. Please note that all CT scans at this facility use dose modulation, iterative reconstruction, and/or weight-based dosing when appropriate to reduce radiation dose to as low as reasonably achievable. Dictated by Anup Solano MD @ 10/10/2020 7:39:[address] Anup Solano @ Oct 10 2020 7:39PM
[2020-10-10] MEDS ORDERED: Vancomycin 1.5 GM in Sodium Chloride 0.9% 500 ML IV SCH (19:45)
--- NOTE | 2020-10-10 20:12 | PCM.HP.2 ---
H&P History of Present Illness - General Date of Service: 10/10/20 Admit Problem/Dx: Admission Diagnosis/Problem Admission Diagnosis/Problem Atrial flutter with rapid ventricular response - History of Present Illness Initial Comments - Free Text/Narative: 84-year-old female with a history of CAD, HLD, HTN, DVT x2 anticoagulated Eliquis 5 mg twice daily, history of basal cell carcinoma of the nose presents to the ER complaining of right ankle and foot pain and swelling for 2 days. Patient denies trauma or injury but states that for the last 2 days he has increased pain in her right ankle and foot with associated swelling. No recent changes to her daily routine including increase in walking. She denies history of gout. At baseline she ambulates with a cane. Patient denies history of atrial fib or atrial flutter but is found to be in atrial flutter with RVR in the ER. She denies chest pain, palpitations, shortness of breath or syncope. She denies fever, chills, lightheadedness, abdominal pain, nausea, vomiting, diarrhea, cough or dysuria. ER course: Temperature 98.6. Pulse 140. RR 18. Blood pressure 111/72. 97% on room air. EKG shows the patient to be in SVT with HR 145. Carotid massage lower the heart rate and shows underlying atrial flutter. Patient started on diltiazem IV for rate control. Heart rate lowered to less than 100. WBC 16. Hgb 14.4. PLT 210. BUN 22. Creatinine 1.3. Blood glucose 116. Uric acid 7.8. CRP 17.8. TSH 0.58. BNP 120. Troponin negative. SARS-CoV-2 negative. Patient is Covid vaccinated. Doppler ultrasound lower extremity right: No DVT. Right foot XR: Possible lateral cuneiform and navicular bone cortical irregularity. Tenderness overlyin g the bones with soft tissue swelling laterally. CT right foot: No sign of acute osseous injury or fracture. Mild diffuse subcutaneous swelling and edema involving foot consistent with cellulitis. Past medical history: CAD, HLD, HTN, right lower extremity DVT in 2005 chronically anticoagulated since. Switch to Eliquis in 2017. GERD, hiatal hernia, basal cell carcinoma of the nose, breast cancer with bilateral mastectomy, status post 2 stents in 2013. Myocardial perfusion scan on 05/18/2020: No evidence of ischemia, LV systolic function normal. Ejection fraction 67%. Allergies: Acetaminophen. Hydrocodone. Ibuprofen. Penicillin. Medications: Eliquis 5 mg twice daily. Furosemide 20mg, Losartan 25mg. Metoprolol 25mg bid. NG 0.4 SL prn. Aspirin 81mg. Atorvastatin 20mg. Isosorbide mono 30mg. Omeprazole 20mg bid. Citalopram 10mg. HCTZ 25mg. CODE STATUS: Full code Right Foot Pain Score (Numeric/FACES): 10 - Related Data Allergies/Adverse Reactions: Allergies Allergy/AdvReac Type Severity Reaction Status Date / Time acetaminophen Allergy Disorientat Verified 10/10/20 15:55 [From Darvocet-N 100] ion hydrocodone bitartrate Allergy Nausea and Verified 10/10/20 15:55 [From Vicoprofen] Vomiting ibuprofen [From Vicoprofen] Allergy Nausea and Verified 10/10/20 15:55 Vomiting Penicillins Allergy Cannot Verified 10/10/20 15:55 Remember propoxyphene napsylate Allergy Disorientat Verified 10/10/20 15:55 [From Darvocet-N 100] ion Home Medications: Home Meds Furosemide 20 mg PO DAILY 12/23/13 [History] Losartan Potassium 25 mg PO DAILY 12/23/13 [History] Metoprolol Tartrate [Lopressor] 25 mg PO BID 12/23/13 [History] Nitroglycerin [Nitrostat] 0.4 mg SL ASDIRECTED PRN 12/23/13 [History] Aspirin [Adult Low Dose Aspirin EC] 81 mg PO DAILY 09/18/15 [History] atorvaSTATin [Lipitor] 20 mg PO DAILY 04/06/16 [History] Isosorbide Mononitrate [Isosorbide Mononitrate ER] 30 mg PO DAILY 04/07/16 [History] Omeprazole 20 mg PO BID 04/07/16 [History] Citalopram [Celexa] 10 mg PO DAILY 06/11/16 [History] Hydrochlorothiazide 25 mg PO DAILY 06/11/16 [History] Past Medical History HEENT History: Reports: Cataract Other HEENT History: wears glasses Cardiovascular History: Reports: CAD, High Cholesterol, Hypertension, Stents Other Cardiovascular History: Anti-coagulant therapy since for DVT (Rt. leg) associated with PE Respiratory History: Reports: None Gastrointestinal History: Reports: GERD, Hiatal Hernia Other Gastrointestinal History: Heartburn Genitourinary History: Reports: Renal Calculus Other Genitourinary History: Recent anti-biotic for UTI's and 'dark colored urine' [employer]MI[employer]CH[employer]ICIAN History: Reports: None Musculoskeletal History: Reports: Fracture Other Musculoskeletal History: bilateral wrists Neurological History: Reports: None Psychiatric History: Reports: None Other Psychiatric History: Reports some anxiety of recent Endocrine/Metabolic History: Reports: None Hematologic History: Reports: Blood Transfusion(s) Immunologic History: Reports: None Oncologic (Cancer) History: Reports: Basal Cell Carcinoma, Breast Dermatologic History: Reports: None - Infectious Disease History Infectious Disease History: Reports: Chicken Pox, Measles, Mumps - Past Surgical History Head Surgeries/Procedures: Reports: None HEENT Surgical History: Reports: Cataract Surgery Other HEENT Surgeries/Procedures: Left cataract with implant Cardiovascular Surgical History: Reports: Coronary Artery Stent Other Cardiovascular Surgeries/Procedures: 2 stents placed in July 2013, no chest pain or SOB since Respiratory Surgical History: Reports: None GI Surgical History: Reports: Colostomy Female Surgical History: Reports: Mastectomy Other Female Surgeries/Procedures: bilateral Mastectomy, bilateral S&O Endocrine Surgical History: Reports: None Musculoskeletal Surgical History: Reports: Hip Replacement, ORIF Other Musculoskeletal Surgeries/Procedures:: right wrist Oncologic Surgical History: Reports: Biopsy of Breast, Mastectomy Other Oncologic Surgeries/Procedures: lesion removed from nose Social & Family History - Family History Family Medical History: No Pertinent Family History - Caffeine Use Caffeine Use: Reports: None - Recreational Drug Use Recreational Drug Use: No H&P Review of Systems - Review of Systems: Review Of Systems: Comprehensive ROS is negative, except as noted in HPI. Exam - Exam Exam: See Below - Vital Signs Vital Signs: Last Vital Signs Temp 98.6 F 10/10/20 18:30 Pulse 93 10/10/20 19:30 Resp 18 10/10/20 19:30 BP 115/70 10/10/20 19:30 Pulse Ox 97 10/10/20 19:30 Weight: 190 lb - Exam General: Alert, Oriented, Cooperative HEENT: EOMI Neck: Supple. No: Carotid Bruit, JVD Lungs: Clear to Auscultation, Normal Respiratory Effort Cardiovascular: Tachycardia GI/Abdominal Exam: Normal Bowel Sounds, Soft, Non-Tender Back Exam: No: CVA Tenderness (L), CVA Tenderness (R) Extremities: Other. No: Andreia's Sign (Right ankle erythema and swelling. Decreased range of motion. Tender to touch laterally.) Neurological: No: Focal Deficit - Patient Data Lab Results Last 24 hrs: Laboratory Results - last 24 hr 10/10/20 10/10/20 10/10/20 Range/Units 17:15 17:15 17:15 WBC 16.35 H (4.0-11.0) K/uL RBC 4.78 (4.30-5.90) M/uL Hgb 14.4 (12.0-16.0) g/dL Hct 44.8 (36.0-46.0) % MCV 93.7 (80.0-98.0) fL MCH 30.1 (27.0-32.0) pg MCHC 32.1 (31.0-37.0) g/dL RDW Std Deviation 50.0 (28.0-62.0) fl RDW Coeff of Jo Ann 15 (11.0-15.0) % Plt Count 210 (150-400) K/uL MPV 12.00 (7.40-12.00) fL Neut % (Auto) 75.5 (48.0-80.0) % Lymph % (Auto) 9.5 L (16.0-40.0) % [place] % (Auto) 14.1 (0.0-15.0) % Eos % (Auto) 0.7 (0.0-7.0) % Baso % (Auto) 0.2 (0.0-1.5) % Neut # (Auto) 12.3 H (1.4-5.7) K/uL Lymph # (Auto) 1.6 (0.6-2.4) K/uL [place] # (Auto) 2.3 H (0.0-0.8) K/uL Eos # (Auto) 0.1 (0.0-0.7) K/uL Baso # (Auto) 0.0 (0.0-0.1) K/uL Nucleated RBC % 0.0 /100WBC Nucleated RBCs # 0 K/uL Sodium 141 (136-145) mmol/L Potassium 4.1 (3.5-5.1) mmol/L Chloride 100 (98-107) mmol/L Carbon Dioxide 29.4 (21.0-32.0) mmol/L BUN 22 H (7.0-18.0) mg/dL Creatinine 1.3 H (0.6-1.0) mg/dL Est Cr Clr Drug Dosing 30.77 mL/min Estimated GFR (MDRD) 38.9 ml/min Glucose 116 H (74-106) mg/dL Uric Acid 7.8 H (2.6-7.2) mg/dL Calcium 9.7 (8.5-10.1) mg/dL Total Bilirubin 0.8 (0.2-1.0) mg/dL AST 22 (15-37) IU/L ALT 22 (14-63) IU/L Alkaline Phosphatase 88 (46-116) U/L Troponin I < 0.050 (0.000-0.056) ng/mL C-Reactive Protein 17.80 H (0.00-0.90) mg/dL B-Natriuretic Peptide (<100) PG/ML Total Protein 7.7 (6.4-8.2) g/dL Albumin 3.5 (3.4-5.0) g/dL Globulin 4.2 H (2.6-4.0) g/dL Albumin/Globulin Ratio 0.8 L (0.9-1.6) TSH, Ultra Sensitive (0.36-3.74) uIU/mL 10/10/20 10/10/20 Range/Units 17:15 17:15 WBC (4.0-11.0) K/uL RBC (4.30-5.90) M/uL Hgb (12.0-16.0) g/dL Hct (36.0-46.0) % MCV (80.0-98.0) fL MCH (27.0-32.0) pg MCHC (31.0-37.0) g/dL RDW Std Deviation (28.0-62.0) fl RDW Coeff of Jo Ann (11.0-15.0) % Plt Count (150-400) K/uL MPV (7.40-12.00) fL Neut % (Auto) (48.0-80.0) % Lymph % (Auto) (16.0-40.0) % [place] % (Auto) (0.0-15.0) % Eos % (Auto) (0.0-7.0) % Baso % (Auto) (0.0-1.5) % Neut # (Auto) (1.4-5.7) K/uL Lymph # (Auto) (0.6-2.4) K/uL [place] # (Auto) (0.0-0.8) K/uL Eos # (Auto) (0.0-0.7) K/uL Baso # (Auto) (0.0-0.1) K/uL Nucleated RBC % /100WBC Nucleated RBCs # K/uL Sodium (136-145) mmol/L Potassium (3.5-5.1) mmol/L Chloride (98-107) mmol/L Carbon Dioxide (21.0-32.0) mmol/L BUN (7.0-18.0) mg/dL Creatinine (0.6-1.0) mg/dL Est Cr Clr Drug Dosing mL/min Estimated GFR (MDRD) ml/min Glucose (74-106) mg/dL Uric Acid (2.6-7.2) mg/dL Calcium (8.5-10.1) mg/dL Total Bilirubin (0.2-1.0) mg/dL AST (15-37) IU/L ALT (14-63) IU/L Alkaline Phosphatase (46-116) U/L Troponin I (0.000-0.056) ng/mL C-Reactive Protein (0.00-0.90) mg/dL B-Natriuretic Peptide 120 H (<100) PG/ML Total Protein (6.4-8.2) g/dL Albumin (3.4-5.0) g/dL Globulin (2.6-4.0) g/dL Albumin/Globulin Ratio (0.9-1.6) TSH, Ultra Sensitive 0.58 (0.36-3.74) uIU/mL Result Diagrams: 10/10/20 17:15 10/10/20 17:15 Sepsis Event Note - Evaluation Sepsis Screening Result: No Definite Risk - Focused Exam Vital Signs: Vital Signs Temp Temp Pulse Resp BP Pulse Ox 10/10/20 19:30 93 18 115/70 97 10/10/20 18:30 98.6 F 10/10/20 18:21 140 H 18 111/72 97 10/10/20 17:58 140 H 18 109/70 97 10/10/20 17:28 97 10/10/20 17:27 86 L 10/10/20 17:21 97.8 F 140 H 18 110/66 95 10/10/20 16:30 138 H 18 95 10/10/20 15:54 97.3 F 118 H 18 141/108 H 95 - Problem List (1) Cellulitis of right foot SNOMED Code(s): 781257916 ICD Code: L03.115 - CELLULITIS OF RIGHT LOWER LIMB Status: Acute Current Visit: Yes (2) Atrial flutter with rapid ventricular response SNOMED Code(s): 7509625, 2693751 ICD Code: I48.92 - UNSPECIFIED ATRIAL FLUTTER Status: Acute Current Visit: Yes Problem List Initiated/Reviewed/Updated: Yes Orders Last 24hrs: Active Orders 24 hr Category Date Time Status Patient Status [ADT] Routine ADT 10/10/20 18:36 Active Antiembolic Devices [RC] PER UNIT ROUTINE Care 10/10/20 19:31 Ordered Blood Glucose Check, Bedside [RC] TIDMEALS Care 10/10/20 19:27 Ordered Cardiac Monitoring [RC] CONTINUOUS Care 10/10/20 19:30 Ordered EKG 12 Lead [EKG Documentation Completion] [RC] STAT Care 10/10/20 16:37 Active Oxygen Therapy [RC] PRN Care 10/10/20 19:28 Ordered RT Aerosol Therapy [RC] ASDIRECTED Care 10/10/20 19:34 Ordered Up ad Geovanna [RC] ASDIRECTED Care 10/10/20 19:27 Ordered VTE/DVT Education [RC] PER UNIT ROUTINE Care 10/10/20 19:28 Ordered Vital Signs [RC] Q4H Care 10/10/20 19:28 Ordered Heart Healthy Diet [DIET] Diet 10/10/20 Dinner Ordered CBC WITH AUTO DIFF [HEME] AM Lab 10/11/20 05:11 Ordered COMPREHENSIVE METABOLIC PN,CMP [CHEM] AM Lab 10/11/20 05:11 Ordered CORONAVIRUS COVID-19 DEMETRIUS [MOLEC] Stat Lab 10/10/20 19:35 Ordered CULTURE BLOOD [BC] Stat Lab 10/10/20 19:27 Ordered CULTURE BLOOD [BC] Stat Lab 10/10/20 19:41 Ordered CULTURE BLOOD [BC] Stat Lab 10/10/20 19:41 Ordered LACTATE SEPSIS W/ REFLEX [CHEM] Stat Lab 10/10/20 19:27 Ordered MAGNESIUM [CHEM] Stat Lab 10/10/20 19:31 Ordered T4 FREE [CHEM] Stat Lab 10/10/20 19:31 Ordered UA W/PEDRO RFLX IF INDICATED [URIN] Stat Lab 10/10/20 18:35 Ordered Albuterol/Ipratropium [DuoNeb 3.0-0.5 MG/3 ML] Med 10/10/20 19:27 Ordered 3 ml NEB Q4HRRT PRN Apixaban [Eliquis] Med 10/10/20 21:00 Ordered 5 mg PO BID Citalopram Med 10/11/20 09:00 Ordered 10 mg PO DAILY Diltiazem [Cardizem] 100 mg Med 10/10/20 16:30 Active Sodium Chloride 0.9% [Normal Saline] 100 ml IV NOW Metoprolol Tartrate [Lopressor] Med 10/10/20 21:00 Ordered 25 mg PO BID Nitroglycerin [Nitrostat] Med 10/10/20 19:35 Ordered 0.4 mg SL ASDIRECTED PRN Sodium Chloride 0.9% [Saline Flush] Med 10/10/20 16:04 Active 10 ml FLUSH ASDIRECTED PRN Sodium Chloride 0.9% [Saline Flush] Med 10/10/20 16:04 Active 2.5 ml FLUSH ASDIRECTED PRN Vancomycin 1.5 gm Med 10/10/20 19:45 Active Sodium Chloride 0.9% [Normal Saline] 500 ml IV Q24H atorvaSTATin [Lipitor] Med 10/11/20 09:00 Ordered 20 mg PO DAILY Blood Culture x2 Reflex Set [OM.PC] Stat Oth 10/10/20 19:41 Ordered DME for Discharge [COMM] Stat Oth 10/10/20 18:38 Ordered DME for Discharge [COMM] Stat Oth 10/10/20 18:39 Ordered Saline Lock Insert [OM.PC] Stat Oth 10/10/20 16:04 Ordered Sequential Compression Device [OM.PC] Per Unit Routine Oth 10/10/20 19:30 Ordered Medication Orders Albuterol/Ipratropium (Albuterol/Ipratropium 3.0-0.5 Mg/3 Ml Neb Soln) 3 ml NEB Q4HRRT PRN PRN Reason: Shortness Of Breath/wheezing Apixaban (Apixaban 5 Mg Tab) 5 mg PO BID DEVORAH Atorvastatin Calcium (Atorvastatin 20 Mg Tab) 20 mg PO DAILY DEVORAH Citalopram Hydrobromide (Citalopram 20 Mg Tab) 10 mg PO DAILY DEVORAH Diltiazem HCl 100 mg/ Sodium (Chloride) 100 mls @ 5 mls/hr IV NOW DEVORAH; Protocol Last Titration: 10/10/20 18:25 Dose: 10 mg/hr, 10 mls/hr Documented by: Admin: 10/10/20 17:16 Dose: 5 mg/hr, 5 mls/hr Documented by: CHARLENE Vancomycin HCl 1.5 gm/ Sodium (Chloride) 500 mls @ 333 mls/hr IV Q24H DEVORAH Metoprolol Tartrate (Metoprolol Tartrate 25 Mg Tab) 25 mg PO BID DEVORAH Nitroglycerin (Nitroglycerin 0.4 Mg Tab.Sl) 0.4 mg SL ASDIRECTED PRN PRN Reason: Chest Pain Sodium Chloride (Sodium Chloride 0.9% 10 Ml Syringe) 10 ml FLUSH ASDIRECTED PRN PRN Reason: Keep Vein Open Last Admin: 10/10/20 17:16 Dose: 10 ml Documented by: CHARLENE Sodium Chloride (Sodium Chloride 0.9% 2.5 Ml Syringe) 2.5 ml FLUSH ASDIRECTED PRN PRN Reason: Keep Vein Open Last Admin: 10/10/20 17:16 Dose: 2.5 ml Documented by: CHARLENE Assessment/Plan Comment:: 84-year-old female with 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 We will start her on vancomycin and zosyn. Follow morning CBC, CMP. Continue diltiazem and increase metoprolol to 50mg bid. Restart eliquis 5mg bid. Hold anti-hypertensives. CODE STATUS: Full Code.
[2020-10-10] MEDS ORDERED: Piperacillin/Tazobactam 3.375 GM in Sodium Chloride 0.9% 50 ML IV SCH (20:30)
[2020-10-10] MEDS ORDERED: Lactated Ringers 1,000 ML IV SCH (20:30)
[2020-10-10] MEDS ORDERED: VANCOmycin 1.5 GM/300 ML 1.5 GM in Premix Bag 1 BAG IV ONE (20:43)
[2020-10-10] MEDS ORDERED: Metoprolol Tartrate 25 MG Tab PO SCH (21:00)
[2020-10-10] MEDS ORDERED: Apixaban 5 MG Tab PO SCH (21:00)
[2020-10-10] MEDS: Apixaban 5 MG Tab PO SCH (21:57)
[2020-10-10] MEDS: Metoprolol Tartrate 50 MG Tab PO SCH (22:23)
[2020-10-10] MEDS: Piperacillin/Tazobactam 2.25 GM in Sodium Chloride 0.9% 50 ML IV SCH (22:24)
--- NOTE | 2020-10-11 00:26 | PN ---
THC Physician - Brief Progress [id number]/13/2021 00:21[facility] Oscar [place], [place] - RAYNEN (MAURA) - RAYNEN RADHA PALMERDate of Service 10/11/2020 00:21HPI/Events of Note Chart reviewed. On camera, the patient is asleep in bed, in NAD, HR 78 on monitor irregular a fib on DIlt 5 mg/hr. Mrs Reilly is an 84 year old lady presenting with right ankle and foot pain f or 2 days, without trauma. In ED was found to be in a flutter (new), asymptomatic. Started on Diltiaz em gtt and trsf to the ICU.PMH: CAD/stent 2013, HTN, HLD, DVT x on Eliquis, basal cell CA, breast CA s/p b/l mastectomy.Investigations reviewed. WBC 16k, Cre 1.3, CRP 17.Doppler US RLE x no DVT.A/P:1. A fib RVR, likely triggered by acute infection - rate controlled on Diltiazem gtt. Consider titrating off in am and continuing her metoprolol (can increase dose if BP allows).2. Cellulitis RLE x started on Vanco/Zosyn. Follow cultures and de-escalate as soon as able.3. h/o DVTs x continue Eliquis.4. CAD - continue home reimgen of beta jacoby, statin, ASA, DOMINGA-inh.Interventions Major-Arrhythmia - evalu ation and management, Infection - evaluation and management
[2020-10-11] MEDS: Piperacillin/Tazobactam 2.25 GM in Sodium Chloride 0.9% 50 ML IV SCH ×4 (03:05→21:34)
[2020-10-11 06:16] LABS: POTASSIUM,K 3.8 mmol/L (3.5-5.1)
[2020-10-11] MEDS: Apixaban 5 MG Tab PO SCH ×2 (09:05→21:33)
[2020-10-11] MEDS: Metoprolol Tartrate 50 MG Tab PO SCH ×2 (09:05→21:32)
[2020-10-11] MEDS: Citalopram 20 MG Tab PO SCH (09:06)
[2020-10-11] MEDS: atorvaSTATin 20 MG Tab PO SCH (09:29)
[2020-10-11] MEDS ORDERED: Lactated Ringers 500 ML IV ONE (11:04)
[2020-10-11] MEDS: HYDROmorphone 2 MG Tab PO PRN ×2 (11:36→16:52)
--- NOTE | 2020-10-11 12:27 | PCM.PN ---
- General Info Date of Service: 10/11/20 Admission Dx/Problem (Free Text): Admission Diagnosis/Problem Admission Diagnosis/Problem Atrial flutter with rapid ventricular response Subjective Update: 84-year-old female with a history of DVT x2, CAD with stents in 2013, HTN, HLD, BCC of nose and breast cancer with bilateral mastectomy presented to the ER with right ankle and foot pain without trauma. No DVT was seen on Doppler ultrasound. CT right foot showed cellulitis and patient was started on vancomycin and Zosyn. She was also found to be in new atrial flutter, asymptomatic. She was started on diltiazem drip which was discontinued last night at 10 PM in the ICU. Metoprolol was increased to 50 mg twice daily. Rate was controlled overnight 60-80. This morning when she leaves the bathroom her heart rate spiked up to 140s. Patient received her morning metoprolol and her rate has been controlled since. Patient did not require pain medication overnight and states that her foot is only hurting mildly over the dorsal aspect. She is tolerating diet. She has not had a bowel movement. She denies chest pain or palpitations. She received 1 bag of LR. - Review of Systems General: Reports: No Symptoms HEENT: Reports: No Symptoms Pulmonary: Reports: No Symptoms Cardiovascular: Denies: Chest Pain, Palpitations, Edema, Lightheadedness Gastrointestinal: Reports: No Symptoms Genitourinary: Reports: No Symptoms Musculoskeletal: Reports: Foot Pain, Joint Swelling Neurological: Reports: No Symptoms - Patient Data Vitals - Most Recent: Last Vital Signs Temp 97.9 F 10/11/20 11:00 Pulse 78 10/11/20 11:00 Resp 21 H 10/11/20 11:00 BP 107/53 L 10/11/20 11:00 Pulse Ox 96 10/11/20 11:00 Weight - Most Recent: 163 lb 9.6 oz I&O - Last 24 Hours: Intake & Output 10/10/20 10/11/20 10/11/20 22:59 06:59 14:59 Intake Total 1600 Output Total 550 Balance 1050 Lab Results Last 24 Hours: Laboratory Results - last 24 hr 10/10/20 10/10/20 10/10/20 Range/Units 17:15 17:15 17:15 WBC 16.35 H (4.0-11.0) K/uL RBC 4.78 (4.30-5.90) M/uL Hgb 14.4 (12.0-16.0) g/dL Hct 44.8 (36.0-46.0) % MCV 93.7 (80.0-98.0) fL MCH 30.1 (27.0-32.0) pg MCHC 32.1 (31.0-37.0) g/dL RDW Std Deviation 50.0 (28.0-62.0) fl RDW Coeff of Jo Ann 15 (11.0-15.0) % Plt Count 210 (150-400) K/uL MPV 12.00 (7.40-12.00) fL Neut % (Auto) 75.5 (48.0-80.0) % Lymph % (Auto) 9.5 L (16.0-40.0) % [place] % (Auto) 14.1 (0.0-15.0) % Eos % (Auto) 0.7 (0.0-7.0) % Baso % (Auto) 0.2 (0.0-1.5) % Neut # (Auto) 12.3 H (1.4-5.7) K/uL Lymph # (Auto) 1.6 (0.6-2.4) K/uL [place] # (Auto) 2.3 H (0.0-0.8) K/uL Eos # (Auto) 0.1 (0.0-0.7) K/uL Baso # (Auto) 0.0 (0.0-0.1) K/uL Nucleated RBC % 0.0 /100WBC Nucleated RBCs # 0 K/uL Sodium 141 (136-145) mmol/L Potassium 4.1 (3.5-5.1) mmol/L Chloride 100 (98-107) mmol/L Carbon Dioxide 29.4 (21.0-32.0) mmol/L BUN 22 H (7.0-18.0) mg/dL Creatinine 1.3 H (0.6-1.0) mg/dL Est Cr Clr Drug Dosing 30.77 mL/min Estimated GFR (MDRD) 38.9 ml/min Glucose 116 H (74-106) mg/dL POC Glucose (70-99) mg/dL Lactic Acid (0.4-2.0) mmol/L Uric Acid 7.8 H (2.6-7.2) mg/dL Calcium 9.7 (8.5-10.1) mg/dL Magnesium (1.8-2.4) mg/dL Total Bilirubin 0.8 (0.2-1.0) mg/dL AST 22 (15-37) IU/L ALT 22 (14-63) IU/L Alkaline Phosphatase 88 (46-116) U/L Troponin I < 0.050 (0.000-0.056) ng/mL C-Reactive Protein 17.80 H (0.00-0.90) mg/dL B-Natriuretic Peptide (<100) PG/ML Total Protein 7.7 (6.4-8.2) g/dL Albumin 3.5 (3.4-5.0) g/dL Globulin 4.2 H (2.6-4.0) g/dL Albumin/Globulin Ratio 0.8 L (0.9-1.6) Free T4 (0.76-1.46) ng/dL TSH, Ultra Sensitive (0.36-3.74) uIU/mL Urine Color Urine Appearance Urine pH (5.0-8.0) Ur Specific [place] (1.001-1.035) Urine Protein (NEGATIVE) mg/dL Urine Glucose (UA) (NEGATIVE) mg/dL Urine Ketones (NEGATIVE) mg/dL Urine Occult Blood (NEGATIVE) Urine Nitrite (NEGATIVE) Urine Bilirubin (NEGATIVE) Urine Urobilinogen (<2.0) EU/dL Ur Leukocyte Esterase (NEGATIVE) SARS-CoV-2 RNA (DEMETRIUS) (NEGATIVE) 10/10/20 10/10/20 10/10/20 Range/Units 17:15 17:15 17:15 WBC (4.0-11.0) K/uL RBC (4.30-5.90) M/uL Hgb (12.0-16.0) g/dL Hct (36.0-46.0) % MCV (80.0-98.0) fL MCH (27.0-32.0) pg MCHC (31.0-37.0) g/dL RDW Std Deviation (28.0-62.0) fl RDW Coeff of Jo Ann (11.0-15.0) % Plt Count (150-400) K/uL MPV (7.40-12.00) fL Neut % (Auto) (48.0-80.0) % Lymph % (Auto) (16.0-40.0) % [place] % (Auto) (0.0-15.0) % Eos % (Auto) (0.0-7.0) % Baso % (Auto) (0.0-1.5) % Neut # (Auto) (1.4-5.7) K/uL Lymph # (Auto) (0.6-2.4) K/uL [place] # (Auto) (0.0-0.8) K/uL Eos # (Auto) (0.0-0.7) K/uL Baso # (Auto) (0.0-0.1) K/uL Nucleated RBC % /100WBC Nucleated RBCs # K/uL Sodium (136-145) mmol/L Potassium (3.5-5.1) mmol/L Chloride (98-107) mmol/L Carbon Dioxide (21.0-32.0) mmol/L BUN (7.0-18.0) mg/dL Creatinine (0.6-1.0) mg/dL Est Cr Clr Drug Dosing mL/min Estimated GFR (MDRD) ml/min Glucose (74-106) mg/dL POC Glucose (70-99) mg/dL Lactic Acid (0.4-2.0) mmol/L Uric Acid (2.6-7.2) mg/dL Calcium (8.5-10.1) mg/dL Magnesium 2.1 (1.8-2.4) mg/dL Total Bilirubin (0.2-1.0) mg/dL AST (15-37) IU/L ALT (14-63) IU/L Alkaline Phosphatase (46-116) U/L Troponin I (0.000-0.056) ng/mL C-Reactive Protein (0.00-0.90) mg/dL B-Natriuretic Peptide 120 H (<100) PG/ML Total Protein (6.4-8.2) g/dL Albumin (3.4-5.0) g/dL Globulin (2.6-4.0) g/dL Albumin/Globulin Ratio (0.9-1.6) Free T4 1.11 (0.76-1.46) ng/dL TSH, Ultra Sensitive 0.58 (0.36-3.74) uIU/mL Urine Color Urine Appearance Urine pH (5.0-8.0) Ur Specific [place] (1.001-1.035) Urine Protein (NEGATIVE) mg/dL Urine Glucose (UA) (NEGATIVE) mg/dL Urine Ketones (NEGATIVE) mg/dL Urine Occult Blood (NEGATIVE) Urine Nitrite (NEGATIVE) Urine Bilirubin (NEGATIVE) Urine Urobilinogen (<2.0) EU/dL Ur Leukocyte Esterase (NEGATIVE) SARS-CoV-2 RNA (DEMETRIUS) (NEGATIVE) 10/10/20 10/10/20 10/11/20 Range/Units 19:25 19:48 00:35 WBC (4.0-11.0) K/uL RBC (4.30-5.90) M/uL Hgb (12.0-16.0) g/dL Hct (36.0-46.0) % MCV (80.0-98.0) fL MCH (27.0-32.0) pg MCHC (31.0-37.0) g/dL RDW Std Deviation (28.0-62.0) fl RDW Coeff of Jo Ann (11.0-15.0) % Plt Count (150-400) K/uL MPV (7.40-12.00) fL Neut % (Auto) (48.0-80.0) % Lymph % (Auto) (16.0-40.0) % [place] % (Auto) (0.0-15.0) % Eos % (Auto) (0.0-7.0) % Baso % (Auto) (0.0-1.5) % Neut # (Auto) (1.4-5.7) K/uL Lymph # (Auto) (0.6-2.4) K/uL [place] # (Auto) (0.0-0.8) K/uL Eos # (Auto) (0.0-0.7) K/uL Baso # (Auto) (0.0-0.1) K/uL Nucleated RBC % /100WBC Nucleated RBCs # K/uL Sodium (136-145) mmol/L Potassium (3.5-5.1) mmol/L Chloride (98-107) mmol/L Carbon Dioxide (21.0-32.0) mmol/L BUN (7.0-18.0) mg/dL Creatinine (0.6-1.0) mg/dL Est Cr Clr Drug Dosing mL/min Estimated GFR (MDRD) ml/min Glucose (74-106) mg/dL POC Glucose (70-99) mg/dL Lactic Acid 1.2 (0.4-2.0) mmol/L Uric Acid (2.6-7.2) mg/dL Calcium (8.5-10.1) mg/dL Magnesium (1.8-2.4) mg/dL Total Bilirubin (0.2-1.0) mg/dL AST (15-37) IU/L ALT (14-63) IU/L Alkaline Phosphatase (46-116) U/L Troponin I (0.000-0.056) ng/mL C-Reactive Protein (0.00-0.90) mg/dL B-Natriuretic Peptide (<100) PG/ML Total Protein (6.4-8.2) g/dL Albumin (3.4-5.0) g/dL Globulin (2.6-4.0) g/dL Albumin/Globulin Ratio (0.9-1.6) Free T4 (0.76-1.46) ng/dL TSH, Ultra Sensitive (0.36-3.74) uIU/mL Urine Color YELLOW Urine Appearance CLEAR Urine pH 5.5 (5.0-8.0) Ur Specific [place] >= 1.030 (1.001-1.035) Urine Protein NEGATIVE (NEGATIVE) mg/dL Urine Glucose (UA) 100 H (NEGATIVE) mg/dL Urine Ketones NEGATIVE (NEGATIVE) mg/dL Urine Occult Blood NEGATIVE (NEGATIVE) Urine Nitrite NEGATIVE (NEGATIVE) Urine Bilirubin NEGATIVE (NEGATIVE) Urine Urobilinogen 0.2 (<2.0) EU/dL Ur Leukocyte Esterase NEGATIVE (NEGATIVE) SARS-CoV-2 RNA (DEMETRIUS) NEGATIVE (NEGATIVE) 10/11/20 10/11/20 10/11/20 Range/Units 05:04 05:04 06:14 WBC 12.84 H (4.0-11.0) K/uL RBC 4.03 L (4.30-5.90) M/uL Hgb 11.8 L (12.0-16.0) g/dL Hct 38.1 (36.0-46.0) % MCV 94.5 (80.0-98.0) fL MCH 29.3 (27.0-32.0) pg MCHC 31.0 (31.0-37.0) g/dL RDW Std Deviation 51.0 (28.0-62.0) fl RDW Coeff of Jo Ann 15 (11.0-15.0) % Plt Count 190 (150-400) K/uL MPV 12.60 H (7.40-12.00) fL Neut % (Auto) 69.5 (48.0-80.0) % Lymph % (Auto) 12.6 L (16.0-40.0) % [place] % (Auto) 16.0 H (0.0-15.0) % Eos % (Auto) 1.6 (0.0-7.0) % Baso % (Auto) 0.3 (0.0-1.5) % Neut # (Auto) 8.9 H (1.4-5.7) K/uL Lymph # (Auto) 1.6 (0.6-2.4) K/uL [place] # (Auto) 2.1 H (0.0-0.8) K/uL Eos # (Auto) 0.2 (0.0-0.7) K/uL Baso # (Auto) 0.0 (0.0-0.1) K/uL Nucleated RBC % 0.0 /100WBC Nucleated RBCs # 0 K/uL Sodium 143 (136-145) mmol/L Potassium 3.8 (3.5-5.1) mmol/L Chloride 105 (98-107) mmol/L Carbon Dioxide 29.0 (21.0-32.0) mmol/L BUN 22 H (7.0-18.0) mg/dL Creatinine 1.1 H (0.6-1.0) mg/dL Est Cr Clr Drug Dosing 36.36 mL/min Estimated GFR (MDRD) 47.2 ml/min Glucose 97 (74-106) mg/dL POC Glucose 105 H (70-99) mg/dL Lactic Acid (0.4-2.0) mmol/L Uric Acid (2.6-7.2) mg/dL Calcium 9.1 (8.5-10.1) mg/dL Magnesium (1.8-2.4) mg/dL Total Bilirubin 0.9 (0.2-1.0) mg/dL AST 20 (15-37) IU/L ALT 17 (14-63) IU/L Alkaline Phosphatase 69 (46-116) U/L Troponin I (0.000-0.056) ng/mL C-Reactive Protein (0.00-0.90) mg/dL B-Natriuretic Peptide (<100) PG/ML Total Protein 6.5 (6.4-8.2) g/dL Albumin 2.8 L (3.4-5.0) g/dL Globulin 3.7 (2.6-4.0) g/dL Albumin/Globulin Ratio 0.8 L (0.9-1.6) Free T4 (0.76-1.46) ng/dL TSH, Ultra Sensitive (0.36-3.74) uIU/mL Urine Color Urine Appearance Urine pH (5.0-8.0) Ur Specific [place] (1.001-1.035) Urine Protein (NEGATIVE) mg/dL Urine Glucose (UA) (NEGATIVE) mg/dL Urine Ketones (NEGATIVE) mg/dL Urine Occult Blood (NEGATIVE) Urine Nitrite (NEGATIVE) Urine Bilirubin (NEGATIVE) Urine Urobilinogen (<2.0) EU/dL Ur Leukocyte Esterase (NEGATIVE) SARS-CoV-2 RNA (DEMETRIUS) (NEGATIVE) 10/11/20 10/11/20 Range/Units 07:45 11:44 WBC (4.0-11.0) K/uL RBC (4.30-5.90) M/uL Hgb (12.0-16.0) g/dL Hct (36.0-46.0) % MCV (80.0-98.0) fL MCH (27.0-32.0) pg MCHC (31.0-37.0) g/dL RDW Std Deviation (28.0-62.0) fl RDW Coeff of Jo Ann (11.0-15.0) % Plt Count (150-400) K/uL MPV (7.40-12.00) fL Neut % (Auto) (48.0-80.0) % Lymph % (Auto) (16.0-40.0) % [place] % (Auto) (0.0-15.0) % Eos % (Auto) (0.0-7.0) % Baso % (Auto) (0.0-1.5) % Neut # (Auto) (1.4-5.7) K/uL Lymph # (Auto) (0.6-2.4) K/uL [place] # (Auto) (0.0-0.8) K/uL Eos # (Auto) (0.0-0.7) K/uL Baso # (Auto) (0.0-0.1) K/uL Nucleated RBC % /100WBC Nucleated RBCs # K/uL Sodium (136-145) mmol/L Potassium (3.5-5.1) mmol/L Chloride (98-107) mmol/L Carbon Dioxide (21.0-32.0) mmol/L BUN (7.0-18.0) mg/dL Creatinine (0.6-1.0) mg/dL Est Cr Clr Drug Dosing mL/min Estimated GFR (MDRD) ml/min Glucose (74-106) mg/dL POC Glucose 108 H 111 H (70-99) mg/dL Lactic Acid (0.4-2.0) mmol/L Uric Acid (2.6-7.2) mg/dL Calcium (8.5-10.1) mg/dL Magnesium (1.8-2.4) mg/dL Total Bilirubin (0.2-1.0) mg/dL AST (15-37) IU/L ALT (14-63) IU/L Alkaline Phosphatase (46-116) U/L Troponin I (0.000-0.056) ng/mL C-Reactive Protein (0.00-0.90) mg/dL B-Natriuretic Peptide (<100) PG/ML Total Protein (6.4-8.2) g/dL Albumin (3.4-5.0) g/dL Globulin (2.6-4.0) g/dL Albumin/Globulin Ratio (0.9-1.6) Free T4 (0.76-1.46) ng/dL TSH, Ultra Sensitive (0.36-3.74) uIU/mL Urine Color Urine Appearance Urine pH (5.0-8.0) Ur Specific [place] (1.001-1.035) Urine Protein (NEGATIVE) mg/dL Urine Glucose (UA) (NEGATIVE) mg/dL Urine Ketones (NEGATIVE) mg/dL Urine Occult Blood (NEGATIVE) Urine Nitrite (NEGATIVE) Urine Bilirubin (NEGATIVE) Urine Urobilinogen (<2.0) EU/dL Ur Leukocyte Esterase (NEGATIVE) SARS-CoV-2 RNA (DEMETRIUS) (NEGATIVE) Med Orders - Current: Current Medications Albuterol/Ipratropium (Albuterol/Ipratropium 3.0-0.5 Mg/3 Ml Neb Soln) 3 ml NEB Q4HRRT PRN PRN Reason: Shortness Of Breath/wheezing Apixaban (Apixaban 5 Mg Tab) 5 mg PO BID [facility] Last Admin: 10/11/20 09:05 Dose: 5 mg Documented by: Atorvastatin Calcium (Atorvastatin 20 Mg Tab) 20 mg PO DAILY [facility] Last Admin: 10/11/20 09:29 Dose: 20 mg Documented by: Citalopram Hydrobromide (Citalopram 20 Mg Tab) 10 mg PO DAILY [facility] Last Admin: 10/11/20 09:06 Dose: 10 mg Documented by: Hydromorphone HCl (Hydromorphone 2 Mg Tab) 0.5 mg PO Q4H PRN PRN Reason: Pain Last Admin: 10/11/20 11:36 Dose: 0.5 mg Documented by: Diltiazem HCl 100 mg/ Sodium (Chloride) 100 mls @ 5 mls/hr IV NOW [facility]; Protocol Last Titration: 10/10/20 22:00 Dose: 0 mg/hr, 0 mls/hr Documented by: Piperacillin Sod/Tazobactam (Sod 2.25 gm/ Sodium Chloride) 50 mls @ 100 mls/hr IV Q6H [facility] Last Admin: 10/11/20 09:30 Dose: 100 mls/hr Documented by: Vancomycin HCl 1.25 gm/ Sodium (Chloride) 250 mls @ 166.667 mls/hr IV Q24H [facility] Metoprolol Tartrate (Metoprolol Tartrate 50 Mg Tab) 50 mg PO BID [facility] Last Admin: 10/11/20 09:05 Dose: 50 mg Documented by: Nitroglycerin (Nitroglycerin 0.4 Mg Tab.Sl) 0.4 mg SL ASDIRECTED PRN PRN Reason: Chest Pain Sodium Chloride (Sodium Chloride 0.9% 10 Ml Syringe) 10 ml FLUSH ASDIRECTED PRN PRN Reason: Keep Vein Open Last Admin: 10/10/20 17:16 Dose: 10 ml Documented by: Sodium Chloride (Sodium Chloride 0.9% 2.5 Ml Syringe) 2.5 ml FLUSH ASDIRECTED PRN PRN Reason: Keep Vein Open Last Admin: 10/10/20 17:16 Dose: 2.5 ml Documented by: Vancomycin HCl (Pharmacy To Dose - Vancomycin) 1 dose .XX ASDIRECTED [facility] Discontinued Medications Apixaban (Apixaban 5 Mg Tab) 5 mg PO BID [facility] Hydromorphone HCl (Hydromorphone 1 Mg/Ml Syringe) 0.5 mg IVPUSH ONETIME ONE Stop: 10/10/20 16:05 Last Admin: 10/10/20 17:15 Dose: 0.5 mg Documented by: Vancomycin HCl 1.5 gm/ Sodium (Chloride) 500 mls @ 333 mls/hr IV Q24H [facility] Last Admin: 10/10/20 20:52 Dose: Not Given Documented by: Piperacillin Sod/Tazobactam (Sod 3.375 gm/ Sodium Chloride) 50 mls @ 100 mls/hr IV Q8H [facility] Last Admin: 10/10/20 20:39 Dose: Not Given Documented by: Lactated Ringer's (Ringers, Lactated) 1,000 mls @ 125 mls/hr IV ASDIRECTED [facility] Stop: 10/11/20 04:29 Last Admin: 10/10/20 21:56 Dose: 125 mls/hr Documented by: Vancomycin HCl 1.5 gm/ Premix 300 mls @ 200 mls/hr IV ONETIME ONE Stop: 10/10/20 22:12 Last Admin: 10/10/20 21:10 Dose: 200 mls/hr Documented by: Lactated Ringer's (Ringers, Lactated) 500 mls @ 999 mls/hr IV .BOLUS ONE Stop: 10/11/20 11:34 Last Admin: 10/11/20 11:45 Dose: 999 mls/hr Documented by: Metoprolol Tartrate (Metoprolol Tartrate 25 Mg Tab) 25 mg PO BID [facility] Ondansetron HCl (Ondansetron 4 Mg/2 Ml Sdv) 4 mg IVPUSH ONETIME ONE Stop: 10/10/20 16:05 Last Admin: 10/10/20 17:16 Dose: 4 mg Documented by: - Exam Quality Assessment: Supplemental Oxygen General: Alert, Oriented, Cooperative HEENT: Pupils Equal Neck: Supple Lungs: Clear to Auscultation, Decreased Breath Sounds Cardiovascular: No Murmurs, Irregular Rhythm, Tachycardia GI/Abdominal Exam: Normal Bowel Sounds, Soft, Non-Tender Extremities: Other (Right ankle and foot are swollen but this is better. Erythema decreased. Tender over dorsal aspect metatarsals. Difficulty with dorsiflexion.) Skin: Warm, Dry Neurological: No New Focal Deficit - Patient Data Lab Results Last 24 hrs: Laboratory Results - last 24 hr 10/10/20 10/10/20 10/10/20 Range/Units 17:15 17:15 17:15 WBC 16.35 H (4.0-11.0) K/uL RBC 4.78 (4.30-5.90) M/uL Hgb 14.4 (12.0-16.0) g/dL Hct 44.8 (36.0-46.0) % MCV 93.7 (80.0-98.0) fL MCH 30.1 (27.0-32.0) pg MCHC 32.1 (31.0-37.0) g/dL RDW Std Deviation 50.0 (28.0-62.0) fl RDW Coeff of Jo Ann 15 (11.0-15.0) % Plt Count 210 (150-400) K/uL MPV 12.00 (7.40-12.00) fL Neut % (Auto) 75.5 (48.0-80.0) % Lymph % (Auto) 9.5 L (16.0-40.0) % [place] % (Auto) 14.1 (0.0-15.0) % Eos % (Auto) 0.7 (0.0-7.0) % Baso % (Auto) 0.2 (0.0-1.5) % Neut # (Auto) 12.3 H (1.4-5.7) K/uL Lymph # (Auto) 1.6 (0.6-2.4) K/uL [place] # (Auto) 2.3 H (0.0-0.8) K/uL Eos # (Auto) 0.1 (0.0-0.7) K/uL Baso # (Auto) 0.0 (0.0-0.1) K/uL Nucleated RBC % 0.0 /100WBC Nucleated RBCs # 0 K/uL Sodium 141 (136-145) mmol/L Potassium 4.1 (3.5-5.1) mmol/L Chloride 100 (98-107) mmol/L Carbon Dioxide 29.4 (21.0-32.0) mmol/L BUN 22 H (7.0-18.0) mg/dL Creatinine 1.3 H (0.6-1.0) mg/dL Est Cr Clr Drug Dosing 30.77 mL/min Estimated GFR (MDRD) 38.9 ml/min Glucose 116 H (74-106) mg/dL POC Glucose (70-99) mg/dL Lactic Acid (0.4-2.0) mmol/L Uric Acid 7.8 H (2.6-7.2) mg/dL Calcium 9.7 (8.5-10.1) mg/dL Magnesium (1.8-2.4) mg/dL Total Bilirubin 0.8 (0.2-1.0) mg/dL AST 22 (15-37) IU/L ALT 22 (14-63) IU/L Alkaline Phosphatase 88 (46-116) U/L Troponin I < 0.050 (0.000-0.056) ng/mL C-Reactive Protein 17.80 H (0.00-0.90) mg/dL B-Natriuretic Peptide (<100) PG/ML Total Protein 7.7 (6.4-8.2) g/dL Albumin 3.5 (3.4-5.0) g/dL Globulin 4.2 H (2.6-4.0) g/dL Albumin/Globulin Ratio 0.8 L (0.9-1.6) Free T4 (0.76-1.46) ng/dL TSH, Ultra Sensitive (0.36-3.74) uIU/mL Urine Color Urine Appearance Urine pH (5.0-8.0) Ur Specific [place] (1.001-1.035) Urine Protein (NEGATIVE) mg/dL Urine Glucose (UA) (NEGATIVE) mg/dL Urine Ketones (NEGATIVE) mg/dL Urine Occult Blood (NEGATIVE) Urine Nitrite (NEGATIVE) Urine Bilirubin (NEGATIVE) Urine Urobilinogen (<2.0) EU/dL Ur Leukocyte Esterase (NEGATIVE) SARS-CoV-2 RNA (DEMETRIUS) (NEGATIVE) 10/10/20 10/10/20 10/10/20 Range/Units 17:15 17:15 17:15 WBC (4.0-11.0) K/uL RBC (4.30-5.90) M/uL Hgb (12.0-16.0) g/dL Hct (36.0-46.0) % MCV (80.0-98.0) fL MCH (27.0-32.0) pg MCHC (31.0-37.0) g/dL RDW Std Deviation (28.0-62.0) fl RDW Coeff of Jo Ann (11.0-15.0) % Plt Count (150-400) K/uL MPV (7.40-12.00) fL Neut % (Auto) (48.0-80.0) % Lymph % (Auto) (16.0-40.0) % [place] % (Auto) (0.0-15.0) % Eos % (Auto) (0.0-7.0) % Baso % (Auto) (0.0-1.5) % Neut # (Auto) (1.4-5.7) K/uL Lymph # (Auto) (0.6-2.4) K/uL [place] # (Auto) (0.0-0.8) K/uL Eos # (Auto) (0.0-0.7) K/uL Baso # (Auto) (0.0-0.1) K/uL Nucleated RBC % /100WBC Nucleated RBCs # K/uL Sodium (136-145) mmol/L Potassium (3.5-5.1) mmol/L Chloride (98-107) mmol/L Carbon Dioxide (21.0-32.0) mmol/L BUN (7.0-18.0) mg/dL Creatinine (0.6-1.0) mg/dL Est Cr Clr Drug Dosing mL/min Estimated GFR (MDRD) ml/min Glucose (74-106) mg/dL POC Glucose (70-99) mg/dL Lactic Acid (0.4-2.0) mmol/L Uric Acid (2.6-7.2) mg/dL Calcium (8.5-10.1) mg/dL Magnesium 2.1 (1.8-2.4) mg/dL Total Bilirubin (0.2-1.0) mg/dL AST (15-37) IU/L ALT (14-63) IU/L Alkaline Phosphatase (46-116) U/L Troponin I (0.000-0.056) ng/mL C-Reactive Protein (0.00-0.90) mg/dL B-Natriuretic Peptide 120 H (<100) PG/ML Total Protein (6.4-8.2) g/dL Albumin (3.4-5.0) g/dL Globulin (2.6-4.0) g/dL Albumin/Globulin Ratio (0.9-1.6) Free T4 1.11 (0.76-1.46) ng/dL TSH, Ultra Sensitive 0.58 (0.36-3.74) uIU/mL Urine Color Urine Appearance Urine pH (5.0-8.0) Ur Specific [place] (1.001-1.035) Urine Protein (NEGATIVE) mg/dL Urine Glucose (UA) (NEGATIVE) mg/dL Urine Ketones (NEGATIVE) mg/dL Urine Occult Blood (NEGATIVE) Urine Nitrite (NEGATIVE) Urine Bilirubin (NEGATIVE) Urine Urobilinogen (<2.0) EU/dL Ur Leukocyte Esterase (NEGATIVE) SARS-CoV-2 RNA (DEMETRIUS) (NEGATIVE) 10/10/20 10/10/20 10/11/20 Range/Units 19:25 19:48 00:35 WBC (4.0-11.0) K/uL RBC (4.30-5.90) M/uL Hgb (12.0-16.0) g/dL Hct (36.0-46.0) % MCV (80.0-98.0) fL MCH (27.0-32.0) pg MCHC (31.0-37.0) g/dL RDW Std Deviation (28.0-62.0) fl RDW Coeff of Jo [place] (11.0-15.0) % Plt Count (150-400) K/uL MPV (7.40-12.00) fL Neut % (Auto) (48.0-80.0) % Lymph % (Auto) (16.0-40.0) % [place] % (Auto) (0.0-15.0) % Eos % (Auto) (0.0-7.0) % Baso % (Auto) (0.0-1.5) % Neut # (Auto) (1.4-5.7) K/uL Lymph # (Auto) (0.6-2.4) K/uL [place] # (Auto) (0.0-0.8) K/uL Eos # (Auto) (0.0-0.7) K/uL Baso # (Auto) (0.0-0.1) K/uL Nucleated RBC % /100WBC Nucleated RBCs # K/uL Sodium (136-145) mmol/L Potassium (3.5-5.1) mmol/L Chloride (98-107) mmol/L Carbon Dioxide (21.0-32.0) mmol/L BUN (7.0-18.0) mg/dL Creatinine (0.6-1.0) mg/dL Est Cr Clr Drug Dosing mL/min Estimated GFR (MDRD) ml/min Glucose (74-106) mg/dL POC Glucose (70-99) mg/dL Lactic Acid 1.2 (0.4-2.0) mmol/L Uric Acid (2.6-7.2) mg/dL Calcium (8.5-10.1) mg/dL Magnesium (1.8-2.4) mg/dL Total Bilirubin (0.2-1.0) mg/dL AST (15-37) IU/L ALT (14-63) IU/L Alkaline Phosphatase (46-116) U/L Troponin I (0.000-0.056) ng/mL C-Reactive Protein (0.00-0.90) mg/dL B-Natriuretic Peptide (<100) PG/ML Total Protein (6.4-8.2) g/dL Albumin (3.4-5.0) g/dL Globulin (2.6-4.0) g/dL Albumin/Globulin Ratio (0.9-1.6) Free T4 (0.76-1.46) ng/dL TSH, Ultra Sensitive (0.36-3.74) uIU/mL Urine Color YELLOW Urine Appearance CLEAR Urine pH 5.5 (5.0-8.0) Ur Specific [place] >= 1.030 (1.001-1.035) Urine Protein NEGATIVE (NEGATIVE) mg/dL Urine Glucose (UA) 100 H (NEGATIVE) mg/dL Urine Ketones NEGATIVE (NEGATIVE) mg/dL Urine Occult Blood NEGATIVE (NEGATIVE) Urine Nitrite NEGATIVE (NEGATIVE) Urine Bilirubin NEGATIVE (NEGATIVE) Urine Urobilinogen 0.2 (<2.0) EU/dL Ur Leukocyte Esterase NEGATIVE (NEGATIVE) SARS-CoV-2 RNA (DEMETRIUS) NEGATIVE (NEGATIVE) 10/11/20 10/11/20 10/11/20 Range/Units 05:04 05:04 06:14 WBC 12.84 H (4.0-11.0) K/uL RBC 4.03 L (4.30-5.90) M/uL Hgb 11.8 L (12.0-16.0) g/dL Hct 38.1 (36.0-46.0) % MCV 94.5 (80.0-98.0) fL MCH 29.3 (27.0-32.0) pg MCHC 31.0 (31.0-37.0) g/dL RDW Std Deviation 51.0 (28.0-62.0) fl RDW Coeff of [place] 15 (11.0-15.0) % Plt Count 190 (150-400) K/uL MPV 12.60 H (7.40-12.00) fL Neut % (Auto) 69.5 (48.0-80.0) % Lymph % (Auto) 12.6 L (16.0-40.0) % [place] % (Auto) 16.0 H (0.0-15.0) % Eos % (Auto) 1.6 (0.0-7.0) % Baso % (Auto) 0.3 (0.0-1.5) % Neut # (Auto) 8.9 H (1.4-5.7) K/uL Lymph # (Auto) 1.6 (0.6-2.4) K/uL [place] # (Auto) 2.1 H (0.0-0.8) K/uL Eos # (Auto) 0.2 (0.0-0.7) K/uL Baso # (Auto) 0.0 (0.0-0.1) K/uL Nucleated RBC % 0.0 /100WBC Nucleated RBCs # 0 K/uL Sodium 143 (136-145) mmol/L Potassium 3.8 (3.5-5.1) mmol/L Chloride 105 (98-107) mmol/L Carbon Dioxide 29.0 (21.0-32.0) mmol/L BUN 22 H (7.0-18.0) mg/dL Creatinine 1.1 H (0.6-1.0) mg/dL Est Cr Clr Drug Dosing 36.36 mL/min Estimated GFR (MDRD) 47.2 ml/min Glucose 97 (74-106) mg/dL POC Glucose 105 H (70-99) mg/dL Lactic Acid (0.4-2.0) mmol/L Uric Acid (2.6-7.2) mg/dL Calcium 9.1 (8.5-10.1) mg/dL Magnesium (1.8-2.4) mg/dL Total Bilirubin 0.9 (0.2-1.0) mg/dL AST 20 (15-37) IU/L ALT 17 (14-63) IU/L Alkaline Phosphatase 69 (46-116) U/L Troponin I (0.000-0.056) ng/mL C-Reactive Protein (0.00-0.90) mg/dL B-Natriuretic Peptide (<100) PG/ML Total Protein 6.5 (6.4-8.2) g/dL Albumin 2.8 L (3.4-5.0) g/dL Globulin 3.7 (2.6-4.0) g/dL Albumin/Globulin Ratio 0.8 L (0.9-1.6) Free T4 (0.76-1.46) ng/dL TSH, Ultra Sensitive (0.36-3.74) uIU/mL Urine Color Urine Appearance Urine pH (5.0-8.0) Ur Specific [place] (1.001-1.035) Urine Protein (NEGATIVE) mg/dL Urine Glucose (UA) (NEGATIVE) mg/dL Urine Ketones (NEGATIVE) mg/dL Urine Occult Blood (NEGATIVE) Urine Nitrite (NEGATIVE) Urine Bilirubin (NEGATIVE) Urine Urobilinogen (<2.0) EU/dL Ur Leukocyte Esterase (NEGATIVE) SARS-CoV-2 RNA (DEMETRIUS) (NEGATIVE) 10/11/20 10/11/20 Range/Units 07:45 11:44 WBC (4.0-11.0) K/uL RBC (4.30-5.90) M/uL Hgb (12.0-16.0) g/dL Hct (36.0-46.0) % MCV (80.0-98.0) fL MCH (27.0-32.0) pg MCHC (31.0-37.0) g/dL RDW Std Deviation (28.0-62.0) fl RDW Coeff of Jo [place] (11.0-15.0) % Plt Count (150-400) K/uL MPV (7.40-12.00) fL Neut % (Auto) (48.0-80.0) % Lymph % (Auto) (16.0-40.0) % [place] % (Auto) (0.0-15.0) % Eos % (Auto) (0.0-7.0) % Baso % (Auto) (0.0-1.5) % Neut # (Auto) (1.4-5.7) K/uL Lymph # (Auto) (0.6-2.4) K/uL [place] # (Auto) (0.0-0.8) K/uL Eos # (Auto) (0.0-0.7) K/uL Baso # (Auto) (0.0-0.1) K/uL Nucleated RBC % /100WBC Nucleated RBCs # K/uL Sodium (136-145) mmol/L Potassium (3.5-5.1) mmol/L Chloride (98-107) mmol/L Carbon Dioxide (21.0-32.0) mmol/L BUN (7.0-18.0) mg/dL Creatinine (0.6-1.0) mg/dL Est Cr Clr Drug Dosing mL/min Estimated GFR (MDRD) ml/min Glucose (74-106) mg/dL POC Glucose 108 H 111 H (70-99) mg/dL Lactic Acid (0.4-2.0) mmol/L Uric Acid (2.6-7.2) mg/dL Calcium (8.5-10.1) mg/dL Magnesium (1.8-2.4) mg/dL Total Bilirubin (0.2-1.0) mg/dL AST (15-37) IU/L ALT (14-63) IU/L Alkaline Phosphatase (46-116) U/L Troponin I (0.000-0.056) ng/mL C-Reactive Protein (0.00-0.90) mg/dL B-Natriuretic Peptide (<100) PG/ML Total Protein (6.4-8.2) g/dL Albumin (3.4-5.0) g/dL Globulin (2.6-4.0) g/dL Albumin/Globulin Ratio (0.9-1.6) Free T4 (0.76-1.46) ng/dL TSH, Ultra Sensitive (0.36-3.74) uIU/mL Urine Color Urine Appearance Urine pH (5.0-8.0) Ur Specific [place] (1.001-1.035) Urine Protein (NEGATIVE) mg/dL Urine Glucose (UA) (NEGATIVE) mg/dL Urine Ketones (NEGATIVE) mg/dL Urine Occult Blood (NEGATIVE) Urine Nitrite (NEGATIVE) Urine Bilirubin (NEGATIVE) Urine Urobilinogen (<2.0) EU/dL Ur Leukocyte Esterase (NEGATIVE) SARS-CoV-2 RNA (DEMETRIUS) (NEGATIVE) Result Diagrams: 10/11/20 05:04 10/11/20 05:04 Sepsis Event Note - Evaluation Sepsis Screening Result: Possible Sepsis Risk - Focused Exam Vital Signs: Vital Signs Temp Pulse Pulse Resp BP BP Pulse Ox 10/11/20 11:00 97.9 F 78 21 H 107/53 L 96 10/11/20 10:00 97.9 F 101 H 18 97 10/11/20 09:05 130 H 95/62 10/11/20 09:00 97.9 F 109 H 17 95/58 L 92 L 10/11/20 08:00 97.9 F 82 16 95/54 L 82 L 10/11/20 07:00 81 17 95/50 L 94 L 10/11/20 06:00 80 17 99/54 L 93 L 10/11/20 05:00 76 16 104/52 L 94 L 10/11/20 04:00 97.9 F 70 16 95/53 L 94 L 10/11/20 03:00 69 16 105/50 L 94 L 10/11/20 02:00 68 17 105/49 L 95 10/11/20 01:00 68 18 101/45 L 93 L - Problem List & Annotations (1) Cellulitis of right foot SNOMED Code(s): 109872451 Code(s): L03.115 - CELLULITIS OF RIGHT LOWER LIMB Status: Acute Current Visit: Yes (2) Atrial flutter with rapid ventricular response SNOMED Code(s): 4951614, 4820862 Code(s): I48.92 - UNSPECIFIED ATRIAL FLUTTER Status: Acute Current Visit: Yes - Problem List Review Problem List Initiated/Reviewed/Updated: Yes - My Orders Last 24 Hours: My Active Orders 10/10/20 Dinner Heart Healthy Diet [DIET] 10/10/20 19:27 Blood Glucose Check, Bedside [RC] TIDMEALS Up ad Geovanna [RC] ASDIRECTED Albuterol/Ipratropium [DuoNeb 3.0-0.5 MG/3 ML] 3 ml NEB Q4HRRT PRN 10/10/20 19:28 Oxygen Therapy [RC] PRN VTE/DVT Education [RC] PER UNIT ROUTINE Vital Signs [RC] Q1H 10/10/20 19:30 Cardiac Monitoring [RC] Q8H Sequential Compression Device [OM.PC] Per Unit Routine 10/10/20 19:31 Antiembolic Devices [RC] PER UNIT ROUTINE 10/10/20 19:34 RT Aerosol Therapy [RC] ASDIRECTED 10/10/20 19:35 Nitroglycerin [Nitrostat] 0.4 mg SL ASDIRECTED PRN 10/10/20 19:41 Blood Culture x2 Reflex Set [OM.PC] Stat 10/10/20 19:48 CULTURE BLOOD [BC] Stat 10/10/20 20:00 CULTURE BLOOD [BC] Stat 10/10/20 20:12 Code Status [Resuscitation Status] Stat 10/10/20 21:00 Apixaban [Eliquis] 5 mg PO BID Metoprolol Tartrate [Lopressor] 50 mg PO BID Piperacillin/Tazobactam [Zosyn] 2.25 gm Sodium Chloride 0.9% [Normal Saline] 50 ml IV Q6H 10/11/20 08:30 Pharmacy to Dose - Vancomycin 1 dose .XX ASDIRECTED 10/11/20 09:00 Citalopram [Celexa] 10 mg PO DAILY atorvaSTATin [Lipitor] 20 mg PO DAILY 10/11/20 21:00 Vancomycin 1.25 gm Sodium Chloride 0.9% [Normal Saline (AdvBag)] 250 ml IV Q24H 10/12/20 12:23 PT Evaluation and Treatment [CONS] Routine - Plan Plan:: 84-year-old female with 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 Continue patient on metoprolol 50 mg twice daily. Her pulse is in the 80s. Continue to monitor blood pressure and give half bolus of LR if blood pressure decreases. Patient is chronically anticoagulated on Eliquis 5 mg twice daily. Patient follows Dr. Eddy tellers supervisor in the outpatient and is booked for a follow-up appointment in November. Patient is currently on 2 L nasal cannula. Continue to wean oxygen and promote incentive spirometry. Physical therapy consult tomorrow. Continue holding antihypertensive medications. Continue patient on vancomycin and Zosyn. Patient does not appear to be in pain. Follow-up with CBC.
[2020-10-11] MEDS ORDERED: Diltiazem 120 MG Cap.CD PO ONE (19:10)
[2020-10-12] MEDS: Piperacillin/Tazobactam 2.25 GM in Sodium Chloride 0.9% 50 ML IV SCH ×2 (02:29→09:53)
[2020-10-12 07:24] LABS: CARBON DIOXIDE,CO2 28.4 mmol/L (21.0-32.0); POTASSIUM,K 3.9 mmol/L (3.5-5.1)
[2020-10-12 08:31] VITALS: BP 128/54; PULSE 76
[2020-10-12] MEDS: Metoprolol Tartrate 50 MG Tab PO SCH (08:32)
[2020-10-12] MEDS: Citalopram 20 MG Tab PO SCH (08:33)
[2020-10-12] MEDS: atorvaSTATin 20 MG Tab PO SCH (08:33)
[2020-10-12] MEDS: Apixaban 5 MG Tab PO SCH (08:34)
[2020-10-12] MEDS ORDERED: Diltiazem 120 MG Cap.CD PO SCH (10:45)
--- NOTE | 2020-10-12 11:39 | PCM.DCSUM1 ---
Discharge Summary - Hospital Course Free Text/Narrative:: 84-year-old female with a history of CAD, HLD, HTN, DVT x2 anticoagulated Eliquis 5 mg twice daily, history of basal cell carcinoma of the nose presents to the ER on 10-10-20 with complaints of right ankle right foot pain and swelling for 2 days. Patient denies trauma or injury to the foot or ankle. No recent changes to her daily routine including increase in walking. She denies history of gout. At baseline she ambulates with a cane. Per documentation patient denied history of A. fib or a flutter but had A. fib with RVR at admission. ER course: EKG shows the patient to be in SVT with HR 145. Patient started on diltiazem IV for rate control. WBC 16. Hgb 14.4. PLT 210. BUN 22. Creatinine 1.3. Blood glucose 116. Uric acid 7.8. CRP 17.8. TSH 0.58. BNP 120. Troponin negative. SARS-CoV-2 negative. Patient is Covid vaccinated. Doppler ultrasound lower extremity right: No DVT. Right foot XR: Possible lateral cuneiform and navicular bone cortical irregularity. Tenderness overlying the bones with soft tissue swelling laterally. CT right foot: No sign of acute osseous injury or fracture. Mild diffuse subcutaneous swelling and edema involving foot consistent with cellulitis. Myocardial perfusion scan on 05/18/2020: No evidence of ischemia, LV systolic function normal. Ejection fraction 67%. Patient admitted to the ICU and then transitioned to the medical unit for cellulitis and monitoring and rate control of A. fib RVR. Patient was continued on diltiazem drip in the ICU then transitioned to home medication of metoprolol 25 mg twice daily for rate control. Patient was still in A. fib with elevated heart rates, metoprolol increased to 50 mg twice daily as well as adding 120 mg diltiazem daily. Heart rates in the 7080 range after medication adjustment. Patient resumed on Eliquis through admission. Right foot cellulitis treated with vancomycin and Zosyn antibiotics. Patient discharged home on diltiazem 120 mg daily, metoprolol increased to 50 mg twice daily, Eliquis 5 mg twice daily, resume Imdur, resume Lasix 20mg daily. Hydrochlorothiazide and losartan medications held as patient's blood pressure may become hypotensive due to the addition of other medications. Patient's vitals at discharge, blood pressure 128/54, heart rate 76. Patient also discharged home on Keflex and doxycycline X 7 days for cellulitis. Patient referred to home health for physical therapy due to difficulty with weightbearing and walking secondary to right foot cellulitis. Per physical therapy patient does have a 4 wheeled walker at home, recommend that patient continue to use four-wheel walker at home. Patient to discuss all medication adjustments with primary care provider and cardiology. Patient to report any side effects including shortness of breath, chest pain, dizziness, lightheadedness, to primary care physician. - Discharge Data Discharge Date: 10/12/20 Discharge Disposition: Home, Self-Care 01 Condition: Stable - Referral to Home Health Date of Face to Face Encounter: 10/12/20 Reason for Homebound Status: Diffculty weight bearing and walking due to foot cellulitis Primary Care Physician: Everardo Musa MD Skilled Need: PT - Patient Summary/Data Consults: Consultations 10/12/20 12:23 PT Evaluation and Treatment [CONS] Routine - Discharge Plan *PRESCRIPTION DRUG MONITORING PROGRAM REVIEWED*: Not Applicable *COPY OF PRESCRIPTION DRUG MONITORING REPORT IN PATIENT CECIL: Not Applicable Prescriptions/Med Rec: Diltiazem [Cardizem CD] 120 mg PO DAILY #30 cap.cd Apixaban [Eliquis] 5 mg PO BID #60 tablet cephALEXin [Keflex] 500 mg PO BID 7 Days #14 cap Metoprolol Tartrate [Lopressor] 50 mg PO BID #60 tablet Doxycycline [Vibra-Tabs] 100 mg PO Q12HR 7 Days #14 tab Home Medications: Home Meds Furosemide 20 mg PO DAILY 12/23/13 [History] Nitroglycerin [Nitrostat] 0.4 mg SL ASDIRECTED PRN 12/23/13 [History] Aspirin [Adult Low Dose Aspirin EC] 81 mg PO DAILY 09/18/15 [History] atorvaSTATin [Lipitor] 20 mg PO DAILY 04/06/16 [History] Isosorbide Mononitrate [Isosorbide Mononitrate ER] 30 mg PO DAILY 04/07/16 [History] Omeprazole 20 mg PO BID 04/07/16 [History] Citalopram [Celexa] 10 mg PO DAILY 06/11/16 [History] Apixaban [Eliquis] 5 mg PO BID #60 tablet 10/12/20 [Rx] Diltiazem [Cardizem CD] 120 mg PO DAILY #30 cap.cd 10/12/20 [Rx] Doxycycline [Vibra-Tabs] 100 mg PO Q12HR 7 Days #14 tab 10/12/20 [Rx] Metoprolol Tartrate [Lopressor] 50 mg PO BID #60 tablet 10/12/20 [Rx] cephALEXin [Keflex] 500 mg PO BID 7 Days #14 cap 10/12/20 [Rx] Patient Handouts: Diltiazem Extended-Release Oral Capsules or Tablets, Metoprolol tablets, Doxycycline tablets or capsules, Cephalexin Tablets or Capsules, Apixaban oral tablets Forms: ED Department Discharge Referrals: Donna Guzman MD [Physician] - Everardo Musa MD [Primary Care Provider] - - Discharge Summary/Plan Comment DC Time >30 min.: Yes Total # of Minutes for Discharge Time: 45 - General Info Date of Service: 10/12/20 Subjective Update: Patient states no concerns overnight. States improved right foot pain, denies chest pain, shortness of breath, dizziness, lightheadedness, chest palpitations. - Review of Systems General: Denies: Fever, Chills Pulmonary: Denies: Shortness of Breath, Cough Cardiovascular: Reports: Dyspnea on Exertion. Denies: Chest Pain, Edema Gastrointestinal: Denies: Abdominal Pain, Nausea, Vomiting Neurological: Denies: Confusion, Dizziness, Headache - Patient Data Vitals - Most Recent: Last Vital Signs Temp 97.9 F 10/12/20 08:26 Pulse 76 10/12/20 11:35 Resp 16 10/12/20 08:26 BP 128/54 L 10/12/20 11:35 Pulse Ox 93 L 10/12/20 08:26 Weight - Most Recent: 163 lb 9.6 oz I&O - Last 24 hours: Intake & Output 10/11/20 10/12/20 10/12/20 22:59 06:59 14:59 Intake Total 50 650 Output Total 600 Balance 50 50 Lab Results - Last 24 hrs: Laboratory Results - last 24 hr 10/11/20 10/12/20 10/12/20 Range/Units 11:44 06:50 06:50 WBC 11.62 H (4.0-11.0) K/uL RBC 4.10 L (4.30-5.90) M/uL Hgb 12.1 (12.0-16.0) g/dL Hct 39.1 (36.0-46.0) % MCV 95.4 (80.0-98.0) fL MCH 29.5 (27.0-32.0) pg MCHC 30.9 L (31.0-37.0) g/dL RDW Std Deviation 53.0 (28.0-62.0) fl RDW Coeff of [place] 15 (11.0-15.0) % Plt Count 204 (150-400) K/uL MPV 12.00 (7.40-12.00) fL Neut % (Auto) 65.9 (48.0-80.0) % Lymph % (Auto) 14.5 L (16.0-40.0) % [place] % (Auto) 15.8 H (0.0-15.0) % Eos % (Auto) 3.5 (0.0-7.0) % Baso % (Auto) 0.3 (0.0-1.5) % Neut # (Auto) 7.7 H (1.4-5.7) K/uL Lymph # (Auto) 1.7 (0.6-2.4) K/uL [place] # (Auto) 1.8 H (0.0-0.8) K/uL Eos # (Auto) 0.4 (0.0-0.7) K/uL Baso # (Auto) 0.0 (0.0-0.1) K/uL Nucleated RBC % 0.0 /100WBC Nucleated RBCs # 0 K/uL Sodium 140 (136-145) mmol/L Potassium 3.9 (3.5-5.1) mmol/L Chloride 106 (98-107) mmol/L Carbon Dioxide 28.4 (21.0-32.0) mmol/L BUN 17 (7.0-18.0) mg/dL Creatinine 1.1 H (0.6-1.0) mg/dL Est Cr Clr Drug Dosing 36.36 mL/min Estimated GFR (MDRD) 47.2 ml/min Glucose 100 (74-106) mg/dL POC Glucose 111 H (70-99) mg/dL Calcium 9.2 (8.5-10.1) mg/dL PEDRO Results - Last 24 hrs: Microbiology 10/10/20 20:00 Aerobic Blood Culture - Preliminary Blood - Venous NO GROWTH AFTER 1 DAY Anaerobic Blood Culture - Preliminary NO GROWTH AFTER 1 DAY 10/10/20 19:48 Aerobic Blood Culture - Preliminary Blood NO GROWTH AFTER 1 DAY Anaerobic Blood Culture - Preliminary NO GROWTH AFTER 1 DAY Med Orders - Current: Current Medications Albuterol/Ipratropium (Albuterol/Ipratropium 3.0-0.5 Mg/3 Ml Neb Soln) 3 ml NEB Q4HRRT PRN PRN Reason: Shortness Of Breath/wheezing Apixaban (Apixaban 5 Mg Tab) 5 mg PO BID [facility] Last Admin: 10/12/20 08:34 Dose: 5 mg Documented by: Atorvastatin Calcium (Atorvastatin 20 Mg Tab) 20 mg PO DAILY [facility] Last Admin: 10/12/20 08:33 Dose: 20 mg Documented by: Citalopram Hydrobromide (Citalopram 20 Mg Tab) 10 mg PO DAILY [facility] Last Admin: 10/12/20 08:33 Dose: 10 mg Documented by: Diltiazem HCl (Diltiazem 120 Mg Cap.Cd) 120 mg PO DAILY [facility] Last Admin: 10/12/20 11:35 Dose: 120 mg Documented by: Hydromorphone HCl (Hydromorphone 2 Mg Tab) 0.5 mg PO Q4H PRN PRN Reason: Pain Last Admin: 10/11/20 16:52 Dose: 0.5 mg Documented by: Piperacillin Sod/Tazobactam (Sod 2.25 gm/ Sodium Chloride) 50 mls @ 100 mls/hr IV Q6H [facility] Last Admin: 10/12/20 09:53 Dose: 100 mls/hr Documented by: Vancomycin HCl 1.25 gm/ Sodium (Chloride) 250 mls @ 166.667 mls/hr IV Q24H [facility] Last Admin: 10/11/20 22:35 Dose: 166.667 mls/hr Documented by: Metoprolol Tartrate (Metoprolol Tartrate 50 Mg Tab) 50 mg PO BID [facility] Last Admin: 10/12/20 08:32 Dose: 50 mg Documented by: Nitroglycerin (Nitroglycerin 0.4 Mg Tab.Sl) 0.4 mg SL ASDIRECTED PRN PRN Reason: Chest Pain Sodium Chloride (Sodium Chloride 0.9% 10 Ml Syringe) 10 ml FLUSH ASDIRECTED PRN PRN Reason: Keep Vein Open Last Admin: 10/10/20 17:16 Dose: 10 ml Documented by: Sodium Chloride (Sodium Chloride 0.9% 2.5 Ml Syringe) 2.5 ml FLUSH ASDIRECTED PRN PRN Reason: Keep Vein Open Last Admin: 10/10/20 17:16 Dose: 2.5 ml Documented by: Vancomycin HCl (Pharmacy To Dose - Vancomycin) 1 dose .XX ASDIRECTED [facility] Discontinued Medications Apixaban (Apixaban 5 Mg Tab) 5 mg PO BID DEVORAH Diltiazem HCl (Diltiazem 120 Mg Cap.Cd) 120 mg PO ONETIME ONE Stop: 10/11/20 19:11 Last Admin: 10/11/20 19:58 Dose: 120 mg Documented by: Hydromorphone HCl (Hydromorphone 1 Mg/Ml Syringe) 0.5 mg IVPUSH ONETIME ONE Stop: 10/10/20 16:05 Last Admin: 10/10/20 17:15 Dose: 0.5 mg Documented by: Diltiazem HCl 100 mg/ Sodium (Chloride) 100 mls @ 5 mls/hr IV NOW [facility]; Protocol Last Titration: 10/10/20 22:00 Dose: 0 mg/hr, 0 mls/hr Documented by: Vancomycin HCl 1.5 gm/ Sodium (Chloride) 500 mls @ 333 mls/hr IV Q24H [facility] Last Admin: 10/10/20 20:52 Dose: Not Given Documented by: Piperacillin Sod/Tazobactam (Sod 3.375 gm/ Sodium Chloride) 50 mls @ 100 mls/hr IV Q8H [facility] Last Admin: 10/10/20 20:39 Dose: Not Given Documented by: Lactated Ringer's (Ringers, Lactated) 1,000 mls @ 125 mls/hr IV ASDIRECTED DEVORAH Stop: 10/11/20 04:29 Last Admin: 10/10/20 21:56 Dose: 125 mls/hr Documented by: Vancomycin HCl 1.5 gm/ Premix 300 mls @ 200 mls/hr IV ONETIME ONE Stop: 10/10/20 22:12 Last Admin: 10/10/20 21:10 Dose: 200 mls/hr Documented by: Lactated Ringer's (Ringers, Lactated) 500 mls @ 999 mls/hr IV .BOLUS ONE Stop: 10/11/20 11:34 Last Admin: 10/11/20 11:45 Dose: 999 mls/hr Documented by: Metoprolol Tartrate (Metoprolol Tartrate 25 Mg Tab) 25 mg PO BID DEVORAH Ondansetron HCl (Ondansetron 4 Mg/2 Ml Sdv) 4 mg IVPUSH ONETIME ONE Stop: 10/10/20 16:05 Last Admin: 10/10/20 17:16 Dose: 4 mg Documented by: - Exam General: Reports: Alert, Oriented Lungs: Reports: Clear to Auscultation, Normal Respiratory Effort Cardiovascular: Reports: Regular Rate, Irregular Rhythm GI/Abdominal Exam: Soft, Non-Tender Extremities: No Pedal Edema
== END 2020-10-12 13:30 | disposition home health service (06) | DRG 603 ==
LOC: MW.ED 15:36 → MW.ICU 18:36 → MW.MS 10-11 15:39
PROVIDERS: ADMIT Internal Medicine; ATTEND Internal Medicine
DX: L03.115 Cellulitis of right lower limb (principal); I48.92 Unspecified atrial flutter; I48.91 Unspecified atrial fibrillation; I25.10 Atherosclerotic heart disease of native coronary artery without angina pectoris; E78.5 Hyperlipidemia, unspecified; S92.901A Unspecified fracture of right foot, initial encounter for closed fracture; X58.XXXA Exposure to other specified factors, initial encounter; H54.7 Unspecified visual loss; I10 Essential (primary) hypertension; E78.00 Pure hypercholesterolemia, unspecified; F41.9 Anxiety disorder, unspecified; K21.9 Gastro-esophageal reflux disease without esophagitis; Z20.822 Contact with and (suspected) exposure to COVID-19; K44.9 Diaphragmatic hernia without obstruction or gangrene; Z96.41 Presence of insulin pump (external) (internal); Z86.718 Personal history of other venous thrombosis and embolism; Z90.13 Acquired absence of bilateral breasts and nipples; Z87.442 Personal history of urinary calculi; Z79.01 Long term (current) use of anticoagulants; Z98.41 Cataract extraction status, right eye; Z88.5 Allergy status to narcotic agent; Z86.711 Personal history of pulmonary embolism; Z85.3 Personal history of malignant neoplasm of breast; Z85.828 Personal history of other malignant neoplasm of skin; Z95.5 Presence of coronary angioplasty implant and graft; Z88.0 Allergy status to penicillin; Z88.6 Allergy status to analgesic agent; Z88.8 Allergy status to other drugs, medicaments and biological substances; Z98.42 Cataract extraction status, left eye; Z79.82 Long term (current) use of aspirin; Z79.899 Other long term (current) drug therapy
CPT/HCPCS: 36415; 71046; 73610; 73620; 73700; 80053; 83735; 83880; 84439; 84443; 84484; 84550; 85025; 86140; 93005; 93971; 96365; 96375; 99285; J1170; J2405; J3490; 80048; 81003; 82947; 83605; 87040; 93010; 97161-GP; 99284; A9270-GY; J2543; J3370; J7050; J7120; U0002

== ENCOUNTER 2020-10-12 21:56 | Emergency (ER) | payer MEDICARE, BC ==
[2020-10-12] MEDS ORDERED: EPINEPHrine 1 MG/ML SDV SUBCUT ONE (22:06)
[2020-10-12] MEDS ORDERED: EPINEPHrine 1 MG/ML SDV ONE (22:06)
--- NOTE | 2020-10-12 22:09 | EDM.PDOC ---
<NavinDamon Jossue - Last Filed: 10/13/20 04:32> ED HPI GENERAL MEDICAL PROBLEM - General Chief Complaint: Respiratory Problem Stated Complaint: SHORTNESS OF BREATH Time Seen by Provider: 10/12/20 21:59 Source of Information: Reports: Patient History Limitations: Reports: No Limitations - History of Present Illness INITIAL COMMENTS - FREE TEXT/NARRATIVE: Patient is a 84-year-old female brought in for EMS for possible allergic reaction. Patient took 4 new types of medication 1 was antibiotic for cellulitis. At that time she has no shortness of breath or wheezing. She was given Benadryl and steroids and continues now by EMS. When patient was here she stated that her throat still focus closing up and she is having difficulty breathing and she is on 3 L satting at 95%. Due to her complaint of the throat tightness we will give her epi subcu heart rate is in the 130s as well. Patient seems confused not really answering questions appropriately is not sure was going on as far get baseline per patient. - Related Data Allergies Allergy/AdvReac Type Severity Reaction Status Date / Time acetaminophen Allergy Disorientat Verified 10/10/20 22:43 [From Darvocet-N 100] ion hydrocodone bitartrate Allergy Nausea and Verified 10/10/20 22:43 [From Vicoprofen] Vomiting ibuprofen [From Vicoprofen] Allergy Nausea and Verified 10/10/20 22:43 Vomiting Penicillins Allergy Cannot Verified 10/10/20 22:43 Remember propoxyphene napsylate Allergy Disorientat Verified 10/10/20 22:43 [From Darvocet-N 100] ion Home Meds: Home Meds Furosemide 20 mg PO DAILY 12/23/13 [History] Nitroglycerin [Nitrostat] 0.4 mg SL ASDIRECTED PRN 12/23/13 [History] Aspirin [Adult Low Dose Aspirin EC] 81 mg PO DAILY 09/18/15 [History] atorvaSTATin [Lipitor] 20 mg PO DAILY 04/06/16 [History] Isosorbide Mononitrate [Isosorbide Mononitrate ER] 30 mg PO DAILY 04/07/16 [History] Omeprazole 20 mg PO BID 04/07/16 [History] Citalopram [Celexa] 10 mg PO DAILY 06/11/16 [History] Apixaban [Eliquis] 5 mg PO BID #60 tablet 10/12/20 [Rx] Diltiazem [Cardizem CD] 120 mg PO DAILY #30 cap.cd 10/12/20 [Rx] Doxycycline [Vibra-Tabs] 100 mg PO Q12HR 7 Days #14 tab 10/12/20 [Rx] Metoprolol Tartrate [Lopressor] 50 mg PO BID #60 tablet 10/12/20 [Rx] cephALEXin [Keflex] 500 mg PO BID 7 Days #14 cap 10/12/20 [Rx] Past Medical History HEENT History: Reports: Cataract Other HEENT History: wears glasses Cardiovascular History: Reports: CAD, High Cholesterol, Hypertension, Stents Other Cardiovascular History: Anti-coagulant therapy since for DVT (Rt. leg) associated with PE Respiratory History: Reports: None Gastrointestinal History: Reports: GERD, Hiatal Hernia Other Gastrointestinal History: Heartburn Genitourinary History: Reports: Renal Calculus Other Genitourinary History: Recent anti-biotic for UTI's and 'dark colored urine' GENETIC TECHNOLOGIST History: Reports: None Musculoskeletal History: Reports: Fracture Other Musculoskeletal History: bilateral wrists Neurological History: Reports: None Psychiatric History: Reports: None Other Psychiatric History: Reports some anxiety of recent Endocrine/Metabolic History: Reports: None Hematologic History: Reports: Blood Transfusion(s) Immunologic History: Reports: None Oncologic (Cancer) History: Reports: Basal Cell Carcinoma, Breast Dermatologic History: Reports: None - Infectious Disease History Infectious Disease History: Reports: Chicken Pox, Measles, Mumps - Past Surgical History Head Surgeries/Procedures: Reports: None HEENT Surgical History: Reports: Cataract Surgery Other HEENT Surgeries/Procedures: Left cataract with implant Cardiovascular Surgical History: Reports: Coronary Artery Stent Other Cardiovascular Surgeries/Procedures: 2 stents placed in July 2013, no chest pain or SOB since Respiratory Surgical History: Reports: None GI Surgical History: Reports: Colostomy Female Surgical History: Reports: Mastectomy Other Female Surgeries/Procedures: bilateral Mastectomy, bilateral S&O Endocrine Surgical History: Reports: None Musculoskeletal Surgical History: Reports: Hip Replacement, ORIF Other Musculoskeletal Surgeries/Procedures:: right wrist Oncologic Surgical History: Reports: Biopsy of Breast, Mastectomy Other Oncologic Surgeries/Procedures: lesion removed from nose Social & Family History - Family History Family Medical History: No Pertinent Family History - Caffeine Use Caffeine Use: Reports: Coffee, Soda ED ROS GENERAL - Review of Systems Review Of Systems: Unable To Obtain Reason Not Obtained: AMS ED EXAM, GENERAL - Physical Exam Exam: See Below Exam Limited By: Altered Mental Status General Appearance: No Apparent Distress Respiratory/Chest: Wheezing Cardiovascular: Normal Peripheral Pulses, Tachycardia GI/Abdominal: Normal Bowel Sounds, Soft, Non-Tender Extremities: Normal Inspection, Normal Range of Motion Neurological: Alert, Oriented #1 Interpretation EKG Date: 10/12/20 Time: 21:58 Rhythm: A-Flutter Rate (Beats/Min): 121 ST-T: Normal Course - Re-Assessments/Exams Free Text/Narrative Re-Assessment/Exam: 10/12/20 23:51 Patient has a positive troponin. We called Dr. Jasson irwin at [facility] for recommendations his hospital orderly he thinks is may be due to demand ischemia due to her age and that bit of a heart rate. Heart rates been down in the 80s now but she is hypotensive. Her x-ray shows possible CHF patient was given Lasix. We will trend her troponins and troponins remained stable or decreasing we can likely admit patient here otherwise patient may need cardiology follow-up. 10/13/20 04:[address] Freire at [facility] who is a hospital orderly there. They accepted the patient but they want to call back at 8 AM to speak to the ER as the new team will be on by the time the patient has arrived. Departure - Departure Time of Disposition: 03:47 Disposition: DC/Tfer to Acute Hospital 02 Condition: Good Clinical Impression: NSTEMI (non-ST elevated myocardial infarction) - Discharge Information *PRESCRIPTION DRUG MONITORING PROGRAM REVIEWED*: Not Applicable *COPY OF PRESCRIPTION DRUG MONITORING REPORT IN PATIENT CECIL: Not Applicable Referrals: Everardo Musa MD [Primary Care Provider] - Forms: ED Department Discharge Critical Care Note - Critical Care Note Total Time (mins): 50 Comments: Critical Care Procedure Note Authorized and Performed by: Dr. Holden Total critical care time: Approximately Due to a high probability of clinically significant, life threatening deterioration, the patient required my highest level of preparedness to intervene emergently and I personally spent this critical care time directly and personally managing the patient. This critical care time included obtaining a history; examining the patient; pulse oximetry; ordering and review of studies; arranging urgent treatment with development of a management plan; evaluation of patient's response to treatment; frequent reassessment; and, discussions with other providers. This critical care time was performed to assess and manage the high probability of imminent, life-threatening deterioration that could result in multi-organ failure. It was exclusive of separately billable procedures and treating other patients and teaching time. - Assessment/Plan Plan: Patient is 84-year-old female who presents today for possible allergic reaction. Unclear what happened to this patient as she started a new medication she became short of breath and has some wheezing. She denies any extremity itching or rashes. You was given Benadryl and steroids by EMS. Her son gave him information and states that they gave her the medicine she had a possible reaction. Here patient is ANO x2 was not sure where she is low candidate. Patient was said her throat was closing up so we did give her some epi subcu. Her heart rate has been bouncing in the 100s to 140s she has history of a flutter. Will likely give diltiazem and reassess. <Cade Shelby - Last Filed: 10/13/20 18:00> ED HPI GENERAL MEDICAL PROBLEM - History of Present Illness INITIAL COMMENTS - FREE TEXT/NARRATIVE: Patient was signed out to me by Dr. Holden pending transfer at 7 AM I did reevaluate the patient the patient continued to remain stable. At this time I discussed that given that she is going to be here in the emergency department we would like to repeat the troponin. She was amenable to this plan. Laboratory: Repeat troponin is decreased at 0.465. EMS did arrive and the patient will be transported to [facility] in stable condition. DISPOSITION: The patient was transported to [facility] in stable condition Cade Shelby M.D. Course - Vital Signs Last Recorded V/S: Last Vital Signs Temp 37.4 C 10/12/20 21:59 Pulse 102 H 10/13/20 07:48 Resp 18 10/13/20 06:25 BP 135/73 10/13/20 07:48 Pulse Ox 97 10/13/20 06:25 - Orders/Labs/Meds Orders: Active Orders 24 hr Category Date Time Status Cardiac Monitoring [RC] STAT Care 10/13/20 03:20 Active Communication Order [RC] PER UNIT ROUTINE Care 10/13/20 03:20 Active Communication Order [RC] PER UNIT ROUTINE Care 10/13/20 03:20 Active Oxygen Therapy [RC] ASDIRECTED Care 10/13/20 03:20 Active PTT,PARTIAL THROMBOPLSTIN TIME [COAG] Q6H Lab 10/14/20 04:30 Ordered PTT,PARTIAL THROMBOPLSTIN TIME [COAG] Q6H Lab 10/14/20 10:30 Ordered PTT,PARTIAL THROMBOPLSTIN TIME [COAG] Q6H Lab 10/14/20 16:30 Ordered Heparin Sodium/0.45% NaCl [Heparin 25,000 Units in 1/2 Med 10/13/20 04:25 Active NS 500 ML] 500 ml IV STAT Medication Orders Heparin Sodium/Sodium Chloride (Heparin 25,000 Units In 1/2 Ns 500 Ml) 500 mls @ 20.14 mls/hr IV STAT STA; Protocol Stop: 10/14/20 05:14 Last Admin: 10/13/20 04:36 Dose: 12 units/kg/hr, 20.14 mls/hr Documented by: YOU Cosigned by: [place] Labs: Laboratory Tests 10/12/20 10/12/20 10/12/20 Range/Units 21:58 21:58 21:58 WBC 11.69 H (4.0-11.0) K/uL RBC 4.39 (4.30-5.90) M/uL Hgb 13.4 (12.0-16.0) g/dL Hct 41.7 (36.0-46.0) % MCV 95.0 (80.0-98.0) fL MCH 30.5 (27.0-32.0) pg MCHC 32.1 (31.0-37.0) g/dL RDW Std Deviation 52.4 (28.0-62.0) fl RDW Coeff of Jo Ann 15 (11.0-15.0) % Plt Count 225 (150-400) K/uL MPV 12.20 H (7.40-12.00) fL Neut % (Auto) 81.6 H (48.0-80.0) % Lymph % (Auto) 12.2 L (16.0-40.0) % [place] % (Auto) 3.8 (0.0-15.0) % Eos % (Auto) 2.1 (0.0-7.0) % Baso % (Auto) 0.3 (0.0-1.5) % Neut # (Auto) 9.5 H (1.4-5.7) K/uL Lymph # (Auto) 1.4 (0.6-2.4) K/uL [place] # (Auto) 0.5 (0.0-0.8) K/uL Eos # (Auto) 0.2 (0.0-0.7) K/uL Baso # (Auto) 0.0 (0.0-0.1) K/uL Nucleated RBC % 0.0 /100WBC Nucleated RBCs # 0 K/uL INR 1.06 APTT 24.1 (18.6-31.3) SEC Sodium 142 (136-145) mmol/L Potassium 4.5 (3.5-5.1) mmol/L Chloride 104 (98-107) mmol/L Carbon Dioxide 26.7 (21.0-32.0) mmol/L BUN 21 H (7.0-18.0) mg/dL Creatinine 1.3 H (0.6-1.0) mg/dL Est Cr Clr Drug Dosing 30.77 mL/min Estimated GFR (MDRD) 38.9 ml/min Glucose 212 H (74-106) mg/dL Calcium 9.3 (8.5-10.1) mg/dL Phosphorus 3.5 (2.6-4.7) mg/dL Magnesium 2.0 (1.8-2.4) mg/dL Total Bilirubin 0.7 (0.2-1.0) mg/dL AST 84 H (15-37) IU/L ALT 50 (14-63) IU/L Alkaline Phosphatase 104 (46-116) U/L Troponin I 0.093 H* (0.000-0.056) ng/mL B-Natriuretic Peptide (<100) PG/ML Total Protein 7.3 (6.4-8.2) g/dL Albumin 2.8 L (3.4-5.0) g/dL Globulin 4.5 H (2.6-4.0) g/dL Albumin/Globulin Ratio 0.6 L (0.9-1.6) Lipase 214 (73-393) U/L SARS-CoV-2 RNA (DEMETRIUS) (NEGATIVE) 10/12/20 10/13/20 10/13/20 Range/Units 23:23 00:55 00:55 WBC (4.0-11.0) K/uL RBC (4.30-5.90) M/uL Hgb (12.0-16.0) g/dL Hct (36.0-46.0) % MCV (80.0-98.0) fL MCH (27.0-32.0) pg MCHC (31.0-37.0) g/dL RDW Std Deviation (28.0-62.0) fl RDW Coeff of Jo Ann (11.0-15.0) % Plt Count (150-400) K/uL MPV (7.40-12.00) fL Neut % (Auto) (48.0-80.0) % Lymph % (Auto) (16.0-40.0) % [place] % (Auto) (0.0-15.0) % Eos % (Auto) (0.0-7.0) % Baso % (Auto) (0.0-1.5) % Neut # (Auto) (1.4-5.7) K/uL Lymph # (Auto) (0.6-2.4) K/uL [place] # (Auto) (0.0-0.8) K/uL Eos # (Auto) (0.0-0.7) K/uL Baso # (Auto) (0.0-0.1) K/uL Nucleated RBC % /100WBC Nucleated RBCs # K/uL INR APTT (18.6-31.3) SEC Sodium (136-145) mmol/L Potassium (3.5-5.1) mmol/L Chloride (98-107) mmol/L Carbon Dioxide (21.0-32.0) mmol/L BUN (7.0-18.0) mg/dL Creatinine (0.6-1.0) mg/dL Est Cr Clr Drug Dosing mL/min Estimated GFR (MDRD) ml/min Glucose (74-106) mg/dL Calcium (8.5-10.1) mg/dL Phosphorus (2.6-4.7) mg/dL Magnesium (1.8-2.4) mg/dL Total Bilirubin (0.2-1.0) mg/dL AST (15-37) IU/L ALT (14-63) IU/L Alkaline Phosphatase (46-116) U/L Troponin I 0.535 H* (0.000-0.056) ng/mL B-Natriuretic Peptide 298 H (<100) PG/ML Total Protein (6.4-8.2) g/dL Albumin (3.4-5.0) g/dL Globulin (2.6-4.0) g/dL Albumin/Globulin Ratio (0.9-1.6) Lipase (73-393) U/L SARS-CoV-2 RNA (DEMETRIUS) NEGATIVE (NEGATIVE) 10/13/20 10/13/20 Range/Units 03:30 07:26 WBC (4.0-11.0) K/uL RBC (4.30-5.90) M/uL Hgb (12.0-16.0) g/dL Hct (36.0-46.0) % MCV (80.0-98.0) fL MCH (27.0-32.0) pg MCHC (31.0-37.0) g/dL RDW Std Deviation (28.0-62.0) fl RDW Coeff of Jo Ann (11.0-15.0) % Plt Count (150-400) K/uL MPV (7.40-12.00) fL Neut % (Auto) (48.0-80.0) % Lymph % (Auto) (16.0-40.0) % [place] % (Auto) (0.0-15.0) % Eos % (Auto) (0.0-7.0) % Baso % (Auto) (0.0-1.5) % Neut # (Auto) (1.4-5.7) K/uL Lymph # (Auto) (0.6-2.4) K/uL [place] # (Auto) (0.0-0.8) K/uL Eos # (Auto) (0.0-0.7) K/uL Baso # (Auto) (0.0-0.1) K/uL Nucleated RBC % /100WBC Nucleated RBCs # K/uL INR 1.09 APTT 25.2 (18.6-31.3) SEC Sodium (136-145) mmol/L Potassium (3.5-5.1) mmol/L Chloride (98-107) mmol/L Carbon Dioxide (21.0-32.0) mmol/L BUN (7.0-18.0) mg/dL Creatinine (0.6-1.0) mg/dL Est Cr Clr Drug Dosing mL/min Estimated GFR (MDRD) ml/min Glucose (74-106) mg/dL Calcium (8.5-10.1) mg/dL Phosphorus (2.6-4.7) mg/dL Magnesium (1.8-2.4) mg/dL Total Bilirubin (0.2-1.0) mg/dL AST (15-37) IU/L ALT (14-63) IU/L Alkaline Phosphatase (46-116) U/L Troponin I 0.465 H* (0.000-0.056) ng/mL B-Natriuretic Peptide (<100) PG/ML Total Protein (6.4-8.2) g/dL Albumin (3.4-5.0) g/dL Globulin (2.6-4.0) g/dL Albumin/Globulin Ratio (0.9-1.6) Lipase (73-393) U/L SARS-CoV-2 RNA (DEMETRIUS) (NEGATIVE) Meds: Medications Generic Name Dose Route Start Last Admin Trade Name Ezraq PRN Reason Stop Dose Admin Heparin Sodium/Sodium Chloride 500 mls @ 20.14 mls/hr 10/13/20 04:25 10/13/20 04:36 Heparin 25,000 Units In 1/2 Ns 500 Ml IV 10/14/20 05:14 12 units/kg/hr STAT STA 20.14 mls/hr Administration Protocol 12 UNITS/KG/HR Discontinued Medications Generic Name Dose Route Start Last Admin Trade Name Freterry PRN Reason Stop Dose Admin Aspirin 324 mg 10/13/20 03:20 10/13/20 04:35 Aspirin 81 Mg Tab.Chew PO 10/13/20 03:21 324 mg ONETIME ONE Administration Diltiazem HCl 20 mg 10/12/20 22:21 10/12/20 22:45 Diltiazem 25 Mg/5 Ml Sdv IVPUSH 10/12/20 22:22 Not Given ONETIME ONE Diltiazem HCl 20 mg 10/13/20 00:01 10/13/20 00:12 Diltiazem 25 Mg/5 Ml Sdv IVPUSH 10/13/20 00:02 20 mg ONETIME ONE Administration Epinephrine HCl 0.5 mg 10/12/20 22:06 10/12/20 22:11 Epinephrine 1 Mg/Ml Sdv SUBCUT 10/12/20 22:07 0.5 mg ONETIME ONE Administration Epinephrine HCl Confirm 10/12/20 22:06 10/12/20 22:13 Epinephrine 1 Mg/Ml Sdv Administered 10/12/20 22:07 Not Given Dose 1 mg .ROUTE .STK-MED ONE Furosemide 40 mg 10/12/20 23:22 10/12/20 23:47 Furosemide 40 Mg/4 Ml Vial IVPUSH 10/12/20 23:23 40 mg NOW ONE Administration Heparin Sodium/Sodium Chloride 500 mls @ 20.14 mls/hr 10/13/20 03:30 Heparin 25,000 Units In 1/2 Ns 500 Ml IV TITRATE DEVORAH Protocol 12 UNITS/KG/HR Metoprolol Tartrate 50 mg 10/13/20 07:30 10/13/20 07:48 Metoprolol Tartrate 50 Mg Tab PO 10/13/20 07:31 50 mg ONETIME ONE Administration Sepsis Event Note (ED) - Focused Exam Vital Signs: Vital Signs Pulse Pulse Resp BP BP Pulse Ox 10/13/20 07:48 102 H 135/73 10/13/20 06:25 87 18 135/73 97
[2020-10-12] MEDS ORDERED: Diltiazem 25 MG/5 ML SDV IVPUSH ONE (22:21)
[2020-10-12 22:39] LABS: CARBON DIOXIDE,CO2 26.7 mmol/L (21.0-32.0); POTASSIUM,K 4.5 mmol/L (3.5-5.1)
--- NOTE | 2020-10-12 23:21 | CR ---
INDICATION: chest pain/SOB TECHNIQUE: Chest 1 view COMPARISON: Chest x-ray 10/10/2020, CT chest 12/16/2018 FINDINGS: Chronic elevation left hemidiaphragm. Development thickening of the interlobular septa. Cardiac silhouette enlarged. Tortuosity aorta. Degenerative changes. No pneumothorax. IMPRESSION: CHF. Dictated by Brennan Meyer MD @ 10/12/2020 11:18:[address] Brennan Meyer @ Oct 12 2020 11:18PM
[2020-10-12] MEDS ORDERED: Furosemide 40 MG/4 ML VIAL IVPUSH ONE (23:22)
[2020-10-13] MEDS ORDERED: Diltiazem 25 MG/5 ML SDV IVPUSH ONE (00:01)
[2020-10-13] MEDS ORDERED: Aspirin 81 MG Tab.Chew PO ONE (03:20)
[2020-10-13] MEDS ORDERED: Heparin Sodium/0.45% NaCl 500 ML IV SCH (03:30)
[2020-10-13] MEDS ORDERED: Heparin Sodium/0.45% NaCl 500 ML IV STA (04:25)
[2020-10-13 06:26] VITALS: BP 135/73
[2020-10-13] MEDS ORDERED: Metoprolol Tartrate 50 MG Tab PO ONE (07:30)
[2020-10-13 07:51] VITALS: PULSE 102
== END 2020-10-13 09:30 ==
LOC: MW.ED 21:56
DX: I21.4 Non-ST elevation (NSTEMI) myocardial infarction (principal); R00.0 Tachycardia, unspecified; I10 Essential (primary) hypertension; E78.00 Pure hypercholesterolemia, unspecified; I25.10 Atherosclerotic heart disease of native coronary artery without angina pectoris; Z88.6 Allergy status to analgesic agent; Z88.5 Allergy status to narcotic agent; Z88.0 Allergy status to penicillin; Z79.82 Long term (current) use of aspirin; Z79.899 Other long term (current) drug therapy; Z79.01 Long term (current) use of anticoagulants; Z20.822 Contact with and (suspected) exposure to COVID-19; Z95.5 Presence of coronary angioplasty implant and graft
CPT/HCPCS: 36415; 71045; 80053; 83690; 83735; 83880; 84100; 84484; 85025; 85610; 85730; 87804; 96372; 96374; 99291; A9270; J0171; J1644; J1940; J3490; U0002

== ENCOUNTER 2020-12-08 18:05 | Emergency (ER) | payer MEDICARE, BC ==
[2020-12-08] MEDS ORDERED: Sodium Chloride 0.9% 10 ML Syringe FLUSH PRN (18:20)
[2020-12-08] MEDS ORDERED: Sodium Chloride 0.9% 2.5 ML Syringe FLUSH PRN (18:20)
[2020-12-08] MEDS ORDERED: Sodium Chloride 0.9% 1,000 ML IV ONE (18:23)
--- NOTE | 2020-12-08 18:23 | EDM.PDOC ---
ED HPI GENERAL MEDICAL PROBLEM - General Chief Complaint: Chest Pain Stated Complaint: EMS ARRIVAL Time Seen by Provider: 12/08/20 18:06 - History of Present Illness INITIAL COMMENTS - FREE TEXT/NARRATIVE: History of present illness: [] Patient was brought by EMS as a possible STEMI. The EKG showed wide complex and some ST alteration. The patient cannot give a history. She is alert and responds appropriately. She appears to be oriented x4. Patient does not answer questions well about what her medical condition is. The son came and said the patient deteriorated over a week. He says she is started on a beta-jacoby to replace her diltiazem. She started metoprolol 50 mg twice a day when she was in [place] and that was for control of rate with atrial fibrillation. She has been slow to respond and not as active as usual ever since. Over the last week is gotten worse and 3 days ago they cut her metoprolol to 50 mg twice a day but did not restarted diltiazem. The patient has continued to get worse and today she was unable to get up all day long. Last time seen normal was last night about this time. The patient urinated and defecated on herself in her chair today because she could not get up to the bathroom because she was too weak. Review of systems: As per history of present illness and below otherwise all systems reviewed and negative. Past medical history: As per history of present illness and as reviewed below otherwise noncontributory. Surgical history: As per history of present illness and as reviewed below otherwise noncontributory. Social history: No reported history of drug or alcohol abuse. Family history: As per history of present illness and as reviewed below otherwise noncontributory. Physical exam: Constitutional - well developed, well-nourished and in no acute distress HEENT - normocephalic, no evidence of trauma - external nose and mouth normal - no mass in neck and no JVD - mucosae moist EYES - full EOM, PERRL, no icterus - no evidence of inflammation, injection, or drainage Respiratory - no respiratory distress, equal bilateral expansion, lungs clear to auscultation and no abnormal lung sounds Cardiovascular - Regular Rhythm with S1 and S2 appreciated and no murmur, gallop or rub. GI - abdomen soft without distension or organomegaly - normal bowel sounds - no guard or rebound Musculoskeletal no gross deformity of long bones or joints - no tenderness, swelling or edema Neurologic - Alert and oriented times four -slow to respond. Spot soft-spoken. CN II-XII grossly intact - motor sensory and coordination symmetrical but weak. She is able to resist gravity equal amounts of time with both upper extremities. Full extraocular motion. Normal smile. Normal sensation right and left. Moves feet equally. [employer] is equal. The patient's fast exam is negative my estimate neurologic exam is normal except for generalized weakness and no focal weakness. Psychiatric - appropriate mood and affect with normal thought content Hematologic - No petechiae or purpura - mucosa appropriate color and sclera not pale - normal nail bed color and refill Integument - no rash or evidence of trauma - normal turgor Diagnostics: [] Therapeutics: [] Impression: [] Plan: [] Definitive disposition and diagnosis as appropriate pending reevaluation and review of above. Left Chest Pain Score (Numeric/FACES): 6 - Related Data Allergies Allergy/AdvReac Type Severity Reaction Status Date / Time acetaminophen Allergy Disorientat Verified 12/08/20 18:11 [From Darvocet-N 100] ion hydrocodone bitartrate Allergy Nausea and Verified 12/08/20 18:11 [From Vicoprofen] Vomiting ibuprofen [From Vicoprofen] Allergy Nausea and Verified 12/08/20 18:11 Vomiting Penicillins Allergy Cannot Verified 12/08/20 18:11 Remember propoxyphene napsylate Allergy Disorientat Verified 12/08/20 18:11 [From Darvocet-N 100] ion Home Meds: Home Meds Furosemide 20 mg PO DAILY 12/23/13 [History] Nitroglycerin [Nitrostat] 0.4 mg SL ASDIRECTED PRN 12/23/13 [History] Aspirin [Adult Low Dose Aspirin EC] 81 mg PO DAILY 09/18/15 [History] atorvaSTATin [Lipitor] 20 mg PO DAILY 04/06/16 [History] Isosorbide Mononitrate [Isosorbide Mononitrate ER] 30 mg PO DAILY 04/07/16 [History] Omeprazole 20 mg PO BID 04/07/16 [History] Citalopram [Celexa] 10 mg PO DAILY 06/11/16 [History] Apixaban [Eliquis] 5 mg PO BID #60 tablet 10/12/20 [Rx] Diltiazem [Cardizem CD] 120 mg PO DAILY #30 cap.cd 10/12/20 [Rx] Doxycycline [Vibra-Tabs] 100 mg PO Q12HR 7 Days #14 tab 10/12/20 [Rx] Metoprolol Tartrate [Lopressor] 50 mg PO BID #60 tablet 10/12/20 [Rx] cephALEXin [Keflex] 500 mg PO BID 7 Days #14 cap 10/12/20 [Rx] Past Medical History HEENT History: Reports: Cataract Other HEENT History: wears glasses Cardiovascular History: Reports: CAD, High Cholesterol, Hypertension, Stents Other Cardiovascular History: Anti-coagulant therapy since for DVT (Rt. 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 Musculoskeletal History: Reports: Fracture Other Musculoskeletal History: bilateral wrists Neurological History: Reports: None Psychiatric History: Reports: None Other Psychiatric History: Reports some anxiety of recent Endocrine/Metabolic History: Reports: None Hematologic History: Reports: Blood Transfusion(s) Immunologic History: Reports: None Oncologic (Cancer) History: Reports: Basal Cell Carcinoma, Breast Dermatologic History: Reports: None - Infectious Disease History Infectious Disease History: Reports: Chicken Pox, Measles, Mumps - Past Surgical History Head Surgeries/Procedures: Reports: None HEENT Surgical History: Reports: Cataract Surgery Other HEENT Surgeries/Procedures: Left cataract with implant Cardiovascular Surgical History: Reports: Coronary Artery Stent Other Cardiovascular Surgeries/Procedures: 2 stents placed in July 2013, no chest pain or SOB since Respiratory Surgical History: Reports: None GI Surgical History: Reports: Colostomy Female Surgical History: Reports: Mastectomy Other Female Surgeries/Procedures: bilateral Mastectomy, bilateral S&O Endocrine Surgical History: Reports: None Musculoskeletal Surgical History: Reports: Hip Replacement, ORIF Other Musculoskeletal Surgeries/Procedures:: right wrist Oncologic Surgical History: Reports: Biopsy of Breast, Mastectomy Other Oncologic Surgeries/Procedures: lesion removed from nose Social & Family History - Family History Family Medical History: No Pertinent Family History - Caffeine Use Caffeine Use: Reports: Coffee, Soda ED ROS GENERAL - Review of Systems Review Of Systems: Comprehensive ROS is negative, except as noted in HPI. ED EXAM, GENERAL - Physical Exam Exam: See Below Free Text/Narrative:: My physical exam is in the HPI #1 Interpretation EKG Interpretation Comments: None 12/08/2020 at 1759 hrs. shows tachycardia with wide complex. Rate 144 QT 483 [place] -37 no P waves appreciated. Compared to prior available EKG QRS ST slightly changed but not significantly in the prior was read is atrial fibrillation with RVR. I agree this is atrial fibrillation with a wide complex QRS. Impression atrial fibrillation with wide-complex QRS. Course - Vital Signs Last Recorded V/S: Last Vital Signs Temp 36.6 C 12/08/20 18:11 Pulse 114 H 12/08/20 19:10 Resp 18 12/08/20 19:10 BP 131/57 L 12/08/20 19:10 Pulse Ox 93 L 12/08/20 19:10 - Orders/Labs/Meds Orders: Active Orders 24 hr Category Date Time Status Chest 1V Frontal [CR] Stat Exams 12/08/20 18:21 Taken Head wo Cont [CT] Stat Exams 12/08/20 18:21 Taken Potassium Chloride Riders [KCL in Water 20 MEQ/50 ML] Med 12/08/20 19:11 Active 20 meq Premix Bag 1 bag IV ONETIME Sodium Chloride 0.9% [Normal Saline] 1,000 ml Med 12/08/20 19:28 Active IV NOW Sodium Chloride 0.9% [Saline Flush] Med 12/08/20 18:20 Active 10 ml FLUSH ASDIRECTED PRN Sodium Chloride 0.9% [Saline Flush] Med 12/08/20 18:20 Active 2.5 ml FLUSH ASDIRECTED PRN Saline Lock Insert [OM.PC] Stat Oth 12/08/20 18:20 Ordered Medication Orders Potassium Chloride 20 meq/ (Premix) 50 mls @ 25 mls/hr IV ONETIME ONE Stop: 12/08/20 21:10 Sodium Chloride (Normal Saline) 1,000 mls @ 125 mls/hr IV NOW STA Stop: 12/09/20 03:27 Sodium Chloride (Sodium Chloride 0.9% 10 Ml Syringe) 10 ml FLUSH ASDIRECTED PRN PRN Reason: Keep Vein Open Last Admin: 12/08/20 18:31 Dose: 10 ml Documented by: MINESH Sodium Chloride (Sodium Chloride 0.9% 2.5 Ml Syringe) 2.5 ml FLUSH ASDIRECTED PRN PRN Reason: Keep Vein Open Last Admin: 12/08/20 18:31 Dose: 2.5 ml Documented by: MINESH Labs: Laboratory Tests 12/08/20 12/08/20 12/08/20 Range/Units 18:10 18:10 18:11 WBC 15.39 H (4.0-11.0) K/uL RBC 4.76 (4.30-5.90) M/uL Hgb 13.8 (12.0-16.0) g/dL Hct 42.2 (36.0-46.0) % MCV 88.7 (80.0-98.0) fL MCH 29.0 (27.0-32.0) pg MCHC 32.7 (31.0-37.0) g/dL RDW Std Deviation 48.9 (28.0-62.0) fl RDW Coeff of [place] 15 (11.0-15.0) % Plt Count 231 (150-400) K/uL MPV 12.50 H (7.40-12.00) fL Neut % (Auto) 96.0 H (48.0-80.0) % Lymph % (Auto) 2.6 L (16.0-40.0) % [place] % (Auto) 1.0 (0.0-15.0) % Eos % (Auto) 0.3 (0.0-7.0) % Baso % (Auto) 0.1 (0.0-1.5) % Neut # (Auto) 14.8 H (1.4-5.7) K/uL Lymph # (Auto) 0.4 L (0.6-2.4) K/uL [place] # (Auto) 0.2 (0.0-0.8) K/uL Eos # (Auto) 0.0 (0.0-0.7) K/uL Baso # (Auto) 0.0 (0.0-0.1) K/uL Nucleated RBC % 0.0 /100WBC Nucleated RBCs # 0 K/uL Sodium 135 L (136-145) mmol/L Potassium 2.7 L (3.5-5.1) mmol/L Chloride 91 L (98-107) mmol/L Carbon Dioxide 28.9 (21.0-32.0) mmol/L BUN 28 H (7.0-18.0) mg/dL Creatinine 1.5 H (0.6-1.0) mg/dL Est Cr Clr Drug Dosing 26.18 mL/min Estimated GFR (MDRD) 32.9 ml/min Glucose 154 H (74-106) mg/dL Calcium 9.3 (8.5-10.1) mg/dL Total Bilirubin 1.1 H (0.2-1.0) mg/dL AST 102 H (15-37) IU/L ALT 51 (14-63) IU/L Alkaline Phosphatase 149 H (46-116) U/L Troponin I 0.577 H* (0.000-0.056) ng/mL Total Protein 6.7 (6.4-8.2) g/dL Albumin 2.0 L (3.4-5.0) g/dL Globulin 4.7 H (2.6-4.0) g/dL Albumin/Globulin Ratio 0.4 L (0.9-1.6) Urine Color Urine Appearance Urine pH (5.0-8.0) Ur Specific [place] (1.001-1.035) Urine Protein (NEGATIVE) mg/dL Urine Glucose (UA) (NEGATIVE) mg/dL Urine Ketones (NEGATIVE) mg/dL Urine Occult Blood (NEGATIVE) Urine Nitrite (NEGATIVE) Urine Bilirubin (NEGATIVE) Urine Urobilinogen (<2.0) EU/dL Ur Leukocyte Esterase (NEGATIVE) Urine RBC (0-2/HPF) Urine WBC (0-5/HPF) Ur Epithelial Cells (NONE-FEW) Amorphous Sediment (NEGATIVE) Urine Bacteria (NEGATIVE) Urine Mucus (NONE-MOD) Urinalysis Comment SARS-CoV-2 RNA (DEMETRIUS) NEGATIVE (NEGATIVE) 12/08/20 Range/Units 18:40 WBC (4.0-11.0) K/uL RBC (4.30-5.90) M/uL Hgb (12.0-16.0) g/dL Hct (36.0-46.0) % MCV (80.0-98.0) fL MCH (27.0-32.0) pg MCHC (31.0-37.0) g/dL RDW Std Deviation (28.0-62.0) fl RDW Coeff of [place] (11.0-15.0) % Plt Count (150-400) K/uL MPV (7.40-12.00) fL Neut % (Auto) (48.0-80.0) % Lymph % (Auto) (16.0-40.0) % [place] % (Auto) (0.0-15.0) % Eos % (Auto) (0.0-7.0) % Baso % (Auto) (0.0-1.5) % Neut # (Auto) (1.4-5.7) K/uL Lymph # (Auto) (0.6-2.4) K/uL [place] # (Auto) (0.0-0.8) K/uL Eos # (Auto) (0.0-0.7) K/uL Baso # (Auto) (0.0-0.1) K/uL Nucleated RBC % /100WBC Nucleated RBCs # K/uL Sodium (136-145) mmol/L Potassium (3.5-5.1) mmol/L Chloride (98-107) mmol/L Carbon Dioxide (21.0-32.0) mmol/L BUN (7.0-18.0) mg/dL Creatinine (0.6-1.0) mg/dL Est Cr Clr Drug Dosing mL/min Estimated GFR (MDRD) ml/min Glucose (74-106) mg/dL Calcium (8.5-10.1) mg/dL Total Bilirubin (0.2-1.0) mg/dL AST (15-37) IU/L ALT (14-63) IU/L Alkaline Phosphatase (46-116) U/L Troponin I (0.000-0.056) ng/mL Total Protein (6.4-8.2) g/dL Albumin (3.4-5.0) g/dL Globulin (2.6-4.0) g/dL Albumin/Globulin Ratio (0.9-1.6) Urine Color YELLOW Urine Appearance SLT CLOUDY Urine pH 5.5 (5.0-8.0) Ur Specific [place] 1.015 (1.001-1.035) Urine Protein NEGATIVE (NEGATIVE) mg/dL Urine Glucose (UA) NEGATIVE (NEGATIVE) mg/dL Urine Ketones NEGATIVE (NEGATIVE) mg/dL Urine Occult Blood MODERATE H (NEGATIVE) Urine Nitrite NEGATIVE (NEGATIVE) Urine Bilirubin NEGATIVE (NEGATIVE) Urine Urobilinogen 1.0 (<2.0) EU/dL Ur Leukocyte Esterase TRACE H (NEGATIVE) Urine RBC 2-4 (0-2/HPF) Urine WBC 1-3 (0-5/HPF) Ur Epithelial Cells FEW (NONE-FEW) Amorphous Sediment LIGHT (NEGATIVE) Urine Bacteria 2+ H (NEGATIVE) Urine Mucus LIGHT (NONE-MOD) Urinalysis Comment SARS-CoV-2 RNA (DEMETRIUS) (NEGATIVE) Meds: Medications Generic Name Dose Route Start Last Admin Trade Name Freq PRN Reason Stop Dose Admin Potassium Chloride 20 meq/ 50 mls @ 25 mls/hr 12/08/20 19:11 Premix IV 12/08/20 21:10 ONETIME ONE Sodium Chloride 1,000 mls @ 125 mls/hr 12/08/20 19:28 Normal Saline IV 12/09/20 03:27 NOW STA Sodium Chloride 10 ml 12/08/20 18:20 12/08/20 18:31 Sodium Chloride 0.9% 10 Ml Syringe FLUSH 10 ml ASDIRECTED PRN Administration Keep Vein Open Sodium Chloride 2.5 ml 12/08/20 18:20 12/08/20 18:31 Sodium Chloride 0.9% 2.5 Ml Syringe FLUSH 2.5 ml ASDIRECTED PRN Administration Keep Vein Open Discontinued Medications Generic Name Dose Route Start Last Admin Trade Name Freq PRN Reason Stop Dose Admin Sodium Chloride 1,000 mls @ 1,000 mls/hr 12/08/20 18:23 12/08/20 18:30 Normal Saline IV 12/08/20 19:22 1,000 mls/hr .Bolus ONE Administration Potassium Chloride 40 meq 12/08/20 19:11 Potassium Chloride 10% 20 Meq/15 Ml Soln 30 Ml Ud Cup PO 12/08/20 19:12 ONETIME ONE - Re-Assessments/Exams Free Text/Narrative Re-Assessment/Exam: 12/08/20 19:[address] Gonzalez at [facility]. He accepted the patient in transport. Patient is already anticoagulated on Eliquis. Plan ALS transfer. Potassium will be corrected now and in route. Free Text/Narrative Re-Assessment/Exam: 12/08/20 19:36 CT shows no bleed. This possible left-sided infarct which is not hyperacute. The patient however is also already on Eliquis and aspirin. There is no acute bleed. The x-ray shows hiatal hernia and compromised function of the left diaphragm. It is unchanged from prior. 12/08/20 19:37 Due to a high probability of clinically significant, life threatening de terioration, the patient required my highest level of preparedness to intervene emergently and I personally spent this critical care time directly and personally managing the patient. This critical care time included obtaining a history; examining the patient; pulse oximetry; ordering and review of studies; arranging urgent treatment with development of a management plan; evaluation of patient's response to treatment; frequent reassessment; and, discussions with other providers. This critical care time was performed to assess and manage the high probability of imminent, life-threatening deterioration that could result in multi-organ failure. It was exclusive of separately billable procedures and treating other patients and teaching time. Total time 40 minutes This patient was seen and evaluated during the 2019 SARS-CoV-2 novel coronavirus pandemic period. Community viral transmission is ongoing at time of this encounter and the emergency department is operating under pandemic response procedures. Departure - Departure Time of Disposition: 19:45 Disposition: DC/Tfer to Acute Hospital 02 Condition: Fair Clinical Impression: Acute myocardial infarction, Weakness, Hypokalemia, Acute kidney injury, Chronic renal insufficiency - Discharge Information Forms: ED Department Discharge Sepsis Event Note (ED) - Focused Exam Vital Signs: Vital Signs Temp Pulse Resp BP Pulse Ox 12/08/20 19:10 114 H 18 131/57 L 93 L 12/08/20 18:32 133 H 18 111/66 98 12/08/20 18:11 36.6 C 181 H 18 93/63 91 L - My Orders Last 24 Hours: My Active Orders 12/08/20 18:20 Sodium Chloride 0.9% [Saline Flush] 10 ml FLUSH ASDIRECTED PRN Sodium Chloride 0.9% [Saline Flush] 2.5 ml FLUSH ASDIRECTED PRN Saline Lock Insert [OM.PC] Stat 12/08/20 18:21 Chest 1V Frontal [CR] Stat Head wo Cont [CT] Stat 12/08/20 19:11 Potassium Chloride Riders [KCL in Water 20 MEQ/50 ML] 20 meq Premix Bag 1 bag IV ONETIME 12/08/20 19:28 Sodium Chloride 0.9% [Normal Saline] 1,000 ml IV NOW - Assessment/Plan Last 24 Hours: My Active Orders 12/08/20 18:20 Sodium Chloride 0.9% [Saline Flush] 10 ml FLUSH ASDIRECTED PRN Sodium Chloride 0.9% [Saline Flush] 2.5 ml FLUSH ASDIRECTED PRN Saline Lock Insert [OM.PC] Stat 12/08/20 18:21 Chest 1V Frontal [CR] Stat Head wo Cont [CT] Stat 12/08/20 19:11 Potassium Chloride Riders [KCL in Water 20 MEQ/50 ML] 20 meq Premix Bag 1 bag IV ONETIME 12/08/20 19:28 Sodium Chloride 0.9% [Normal Saline] 1,000 ml IV NOW
[2020-12-08 18:56] LABS: CARBON DIOXIDE,CO2 28.9 mmol/L (21.0-32.0); POTASSIUM,K 2.7 mmol/L (3.5-5.1)
[2020-12-08] MEDS ORDERED: Potassium Chloride Riders 20 MEQ in Premix Bag 1 BAG IV ONE (19:11)
[2020-12-08] MEDS ORDERED: Potassium Chloride 10% 20 MEQ/15 ML Soln 30 ML UD Cup PO ONE (19:11)
[2020-12-08] MEDS ORDERED: Sodium Chloride 0.9% 1,000 ML IV STA (19:28)
[2020-12-08 19:49] VITALS: BP 97/56; PULSE 123
--- NOTE | 2020-12-08 19:59 | CT ---
Indication: Altered mental status. Technique: Multiple contiguous axial images were obtained from the skullbase to the vertex without intravenous contrast enhancement. Please note that all CT scans at this facility use dose modulation, iterative reconstruction, and/or weight-based dosing when appropriate to reduce radiation dose to as low as reasonably achievable. Comparison: None Findings: The ventricles are enlarged consistent with the site of the sulci. Confluent areas of low attenuation identified within the periventricular white matter. No intra-axial or extra-axial hemorrhage is identified. No mass, mass effect or midline shift is identified. A tiny lacunar infarct is identified within the anterior limb of the left jansen radiata. The bony calvarium is intact. The visualized paranasal sinuses and mastoid air cells are clear. Impression: Diffuse volume loss. Changes of chronic small vessel ischemia. A tiny lacunar infarct identified within the anterior limb of the left jansen radiata. Please note that all CT scans at this facility use dose modulation, iterative reconstruction, and/or weight-based dosing when appropriate to reduce radiation dose to as low as reasonably achievable. Dictated by Karla Rico MD @ 12/08/2020 7:58:36 PM (Electronically Signed)
--- NOTE | 2020-12-08 21:58 | CR ---
INDICATION: Altered mental status. TECHNIQUE: Chest 1 view. COMPARISON: 10/12/2020 FINDINGS: There is significant elevation of the left hemidiaphragm which is stable. Bilateral interstitial opacities are not significantly changed. The cardiomediastinal silhouette is grossly stable. No evidence of pneumothorax. No sizable pleural effusion identified. Osteophytes bilateral humeral heads. IMPRESSION: Grossly stable exam with elevation of the left hemidiaphragm and bilateral interstitial opacities. Dictated by Rafi Thompson MD @ 12/08/2020 9:56:25 PM (Electronically Signed)
== END 2020-12-08 20:09 ==
LOC: MW.ED 18:05
DX: I21.9 Acute myocardial infarction, unspecified (principal); N17.9 Acute kidney failure, unspecified; I12.9 Hypertensive chronic kidney disease with stage 1 through stage 4 chronic kidney disease, or unspecified chronic kidney disease; N18.9 Chronic kidney disease, unspecified; E87.6 Hypokalemia; I25.10 Atherosclerotic heart disease of native coronary artery without angina pectoris; E78.00 Pure hypercholesterolemia, unspecified; K21.9 Gastro-esophageal reflux disease without esophagitis; Z95.5 Presence of coronary angioplasty implant and graft; Z88.0 Allergy status to penicillin; Z88.5 Allergy status to narcotic agent; Z88.8 Allergy status to other drugs, medicaments and biological substances; Z20.822 Contact with and (suspected) exposure to COVID-19
CPT/HCPCS: 36415; 70450; 71045; 80053; 81001; 84484; 85025; 93005; 96365; 99285; A9270; J3480; J7030; U0002

== ENCOUNTER 2021-02-13 17:03 | Observation (INO) | payer MEDICARE, BC ==
[2021-02-13] MEDS ORDERED: Sodium Chloride 0.9% 2.5 ML Syringe FLUSH PRN (17:28)
[2021-02-13] MEDS: Sodium Chloride 0.9% 10 ML Syringe FLUSH PRN ×2 (17:46→17:47)
[2021-02-13 18:30] LABS: BLOOD UREA NITROGEN,BUN 12 mg/dL (7.0-18.0); CARBON DIOXIDE,CO2 30.6 mmol/L (21.0-32.0); CHLORIDE,CL 106 mmol/L (98-107); GLUCOSE RANDOM 121 mg/dL (74-106); POTASSIUM,K 3.4 mmol/L (3.5-5.1); SODIUM,NA 146 mmol/L (136-145)
[2021-02-13] MEDS ORDERED: Potassium Chloride 20 MEQ Tab.ER PO ONE (23:17)
[2021-02-14] MEDS ORDERED: Acetaminophen 325 MG Tab PO PRN (00:01)
[2021-02-14] MEDS: Apixaban 5 MG Tab PO SCH ×3 (00:18→21:09)
[2021-02-14] MEDS: Losartan 50 MG Tab PO SCH (09:34)
[2021-02-14] MEDS: Omeprazole 20 MG Cap.CR PO SCH (09:36)
[2021-02-14] MEDS: Furosemide 40 MG Tab PO SCH (09:36)
[2021-02-14] MEDS: atorvaSTATin 40 MG Tab PO SCH (09:36)
[2021-02-14] MEDS: Venlafaxine 75 MG Cap.ER PO SCH (09:37)
[2021-02-14] MEDS ORDERED: Losartan 50 MG Tab PO ONE (10:03)
[2021-02-14] MEDS ORDERED: Metoprolol Tartrate 50 MG Tab PO ONE (10:07)
[2021-02-14] MEDS ORDERED: Metoprolol Tartrate 50 MG Tab ONE (11:18)
[2021-02-14] MEDS: Metoprolol Tartrate 50 MG Tab PO SCH ×2 (21:09)
[2021-02-15] MEDS: Omeprazole 20 MG Cap.CR PO SCH (06:38)
[2021-02-15] MEDS: Venlafaxine 75 MG Cap.ER PO SCH (08:10)
[2021-02-15] MEDS: Apixaban 5 MG Tab PO SCH (08:11)
[2021-02-15] MEDS: atorvaSTATin 40 MG Tab PO SCH (08:11)
[2021-02-15] MEDS: Furosemide 40 MG Tab PO SCH (08:12)
[2021-02-15] MEDS: Losartan 50 MG Tab PO SCH (08:14)
[2021-02-15] MEDS: Metoprolol Tartrate 50 MG Tab PO SCH (10:44)
[2021-02-15 12:19] VITALS: BP 142/66; PULSE 60
== END 2021-02-15 15:30 | disposition home health service (06) ==
LOC: MW.ED 17:03 → MW.MS 18:53
PROVIDERS: ADMIT Internal Medicine; ATTEND Internal Medicine
DX: R00.1 Bradycardia, unspecified (principal); I25.10 Atherosclerotic heart disease of native coronary artery without angina pectoris; I11.0 Hypertensive heart disease with heart failure; I50.9 Heart failure, unspecified; I48.91 Unspecified atrial fibrillation; I25.2 Old myocardial infarction; Z88.8 Allergy status to other drugs, medicaments and biological substances; E78.00 Pure hypercholesterolemia, unspecified; K21.9 Gastro-esophageal reflux disease without esophagitis; F41.9 Anxiety disorder, unspecified; Z88.0 Allergy status to penicillin; Z79.82 Long term (current) use of aspirin; Z79.899 Other long term (current) drug therapy; Z98.890 Other specified postprocedural states; Z20.822 Contact with and (suspected) exposure to COVID-19
CPT/HCPCS: 36415; 71045; 80053; 80162; 81001; 83880; 84484; 85025; 85610; 99285; A9270; G0378; U0002; 93010; 99217; 99219; 99225

== ENCOUNTER 2022-02-06 04:50 | Emergency (ER) | payer MEDICARE, BC ==
[2022-02-06] MEDS ORDERED: Acetaminophen 325 MG Tab PO ONE (06:52)
[2022-02-06 07:24] LABS: CARBON DIOXIDE,CO2 29.6 mmol/L (21.0-32.0)
[2022-02-06] MEDS ORDERED: Aspirin 81 MG Tab.Chew PO ONE (07:33)
[2022-02-06] MEDS ORDERED: Sodium Chloride 0.9% 1,000 ML IV ONE (07:34)
[2022-02-06] MEDS ORDERED: Heparin Sodium 5,000 Units/ML Vial ONE (10:26)
[2022-02-06] MEDS ORDERED: Heparin Sodium/0.45% NaCl 500 ML IV SCH (10:30)
[2022-02-06] MEDS ORDERED: Heparin Sodium 5,000 Units/ML Vial IVPUSH ONE (10:30)
[2022-02-06 19:44] VITALS: BP 125/68; PULSE 65
== END 2022-02-06 12:20 ==
LOC: MW.ED 04:50
DX: I21.4 Non-ST elevation (NSTEMI) myocardial infarction (principal); I25.10 Atherosclerotic heart disease of native coronary artery without angina pectoris; E78.00 Pure hypercholesterolemia, unspecified; I10 Essential (primary) hypertension; K21.9 Gastro-esophageal reflux disease without esophagitis; Z88.0 Allergy status to penicillin; Z88.8 Allergy status to other drugs, medicaments and biological substances; Z79.82 Long term (current) use of aspirin; Z79.01 Long term (current) use of anticoagulants; Z79.899 Other long term (current) drug therapy; Z20.822 Contact with and (suspected) exposure to COVID-19
CPT/HCPCS: 36415; 70450; 80053; 80162; 82550; 82947; 84484; 85025; 85730; 93005; 96361; 96365; 99285; A9270; J1644; J7030; U0002

== ENCOUNTER 2023-03-31 08:55 | Inpatient (IN) | payer MEDICARE, BC ==
[2023-03-31] MEDS ORDERED: Sodium Chloride 0.9% 2.5 ML Syringe FLUSH PRN ×2 (09:24→13:49)
[2023-03-31] MEDS ORDERED: Sodium Chloride 0.9% 10 ML Syringe FLUSH PRN ×2 (09:24→13:49)
[2023-03-31] MEDS ORDERED: Acetaminophen 325 MG Tab PO ONE (09:27)
[2023-03-31 09:41] LABS: BASE EXCESS VENOUS -0.3 (-2.0-3.0); PH,VENOUS 7.4 (7.31-7.41)
[2023-03-31 09:57] LABS: HEMATOCRIT 47.3 % (37.0-47.0); HEMOGLOBIN 14.9 g/dL (12.0-16.0); MEAN CORPUSCULAR HEMOGLOBIN 30.3 pg (28.0-32.0); MEAN CORPUSCULAR HGB CONC 31.5 g/dL (32.0-36.0); MEAN CORPUSCULAR VOLUME 96.1 fL (83.0-99.0); MEAN PLATELET VOLUME 12.6 fL (9.4-12.3); PLATELET COUNT,PLT 216 K/uL (150-400); RED BLOOD CELL COUNT 4.92 M/uL (4.10-5.30); WHITE BLOOD CELL COUNT,WBC 18.14 K/uL (3.9-11.3)
[2023-03-31 10:12] LABS: D-DIMER QUANTITATIVE 1.46 mg/L FEU (0.00-0.50); INR 1.04 (0.86-1.11); PTT,PARTIAL THROMBOPLSTIN TIME 21.4 SEC (23.9-30.7)
[2023-03-31 10:27] LABS: CORONAVIRUS COVID-19 NAA NEGATIVE (NEGATIVE); INFLUENZA A NAA NEGATIVE (NEGATIVE); INFLUENZA B NAA NEGATIVE (NEGATIVE); RESPIRATORY SYNCYTIAL VIR NAA NEGATIVE (NEGATIVE)
[2023-03-31 10:36] LABS: A/G RATIO 0.5 (0.9-1.6); ALBUMIN 2.9 g/dL (3.4-5.0); BILIRUBIN TOTAL 0.7 mg/dL (0.2-1.0); CALCIUM 10.9 mg/dL (8.5-10.1); CARBON DIOXIDE,CO2 23.6 mmol/L (21.0-32.0); CREATININE 1.8 mg/dL (0.6-1.0); EST CRCL DRUG DOSING (CG) 21.01 mL/min; POTASSIUM,K 3.8 mmol/L (3.5-5.1); PROTEIN TOTAL,TP 8.5 g/dL (6.4-8.2)
[2023-03-31 10:49] LABS: LYMPHOCYTES ABSOLUTE MAN 1.45 K/uL (1.00-4.80); LYMPHOCYTES PERCENT MAN 8 % (24-44); MONOCYTES ABSOLUTE MAN 1.63 K/uL (0.00-0.80); MONOCYTES PERCENT MAN 9 % (0-8); SEG NEUTROPHILS ABSOLUTE MAN 14.51 K/uL (1.80-7.70); SEG NEUTROPHILS PERCENT MAN 80 % (41-71)
[2023-03-31 10:50] LABS: BASOPHILS ABSOLUTE MAN 0.18 K/uL (0.00-0.20); BASOPHILS PERCENT MAN 1 % (0-1); EOSINOPHILS ABSOLUTE MAN 0.36 K/uL (0.00-0.45); EOSINOPHILS PERCENT MAN 2 % (0-6)
[2023-03-31] MEDS ORDERED: Piperacillin/Tazobactam 4.5 GM in Sodium Chloride 0.9% 100 ML IV ONE (11:05)
[2023-03-31 12:21] LABS: LACTIC ACID 1.3 mmol/L (0.4-2.0)
[2023-03-31] MEDS ORDERED: Albuterol/Ipratropium 3.0-0.5 MG/3 ML Neb Soln NEB PRN (13:49)
[2023-03-31] MEDS ORDERED: Ondansetron 4 MG/2 ML SDV IVPUSH PRN (13:49)
[2023-03-31] MEDS ORDERED: Acetaminophen 325 MG Tab PO PRN (13:49)
[2023-03-31] MEDS ORDERED: Bisacodyl 10 MG Supp RECTAL PRN (14:47)
[2023-03-31] MEDS ORDERED: Sodium Chloride 0.9% 1,000 ML IV STA (15:05)
[2023-03-31] MEDS ORDERED: Acetaminophen 650 MG Supp RECTAL PRN (15:50)
[2023-03-31] MEDS: Azithromycin 500 MG in Sodium Chloride 0.9% 250 ML IV SCH (17:10)
[2023-03-31] MEDS ORDERED: Piperacillin/Tazobactam 3.375 GM in Sodium Chloride 0.9% 100 ML IV SCH (18:00)
[2023-03-31] MEDS: Piperacillin/Tazobactam 4.5 GM in Sodium Chloride 0.9% 100 ML IV SCH (18:15)
[2023-03-31 19:37] LABS: APPEARANCE,URINE CLOUDY; GLUCOSE,URINE NEGATIVE (NEGATIVE); KETONES,URINE TRACE mg/dL (NEGATIVE); LEUKOCYTE ESTERASE,URINE LARGE (NEGATIVE); NITRITE,URINE POSITIVE (NEGATIVE); OCCULT BLOOD,URINE LARGE (NEGATIVE); PH,URINE 5.5 (5.0-8.0); PROTEIN,URINE 100 mg/dL (NEGATIVE)
[2023-03-31 19:41] LABS: BILIRUBIN,URINE MODERATE (NEGATIVE); COLOR,URINE BROWN
[2023-03-31 19:45] LABS: BACTERIA,URINE 3+ (NEGATIVE); EPITHELIAL CELLS,URINE FEW (NONE-FEW); RBC,URINE TOO NUMEROUS TO CT (0-2/HPF); WBC,URINE TO NUMEROUS TO COUNT (0-5/HPF)
[2023-03-31] MEDS ORDERED: Apixaban 2.5 MG Tab PO SCH (21:00)
[2023-03-31] MEDS ORDERED: Enoxaparin 100 MG/1 ML Syringe SUBCUT SCH (21:00)
[2023-04-01] MEDS: Piperacillin/Tazobactam 4.5 GM in Sodium Chloride 0.9% 100 ML IV SCH ×3 (02:08→17:55)
[2023-04-01 06:04] LABS: HEMATOCRIT 43.9 % (37.0-47.0); HEMOGLOBIN 13.8 g/dL (12.0-16.0); MEAN CORPUSCULAR HEMOGLOBIN 30.2 pg (28.0-32.0); MEAN CORPUSCULAR HGB CONC 31.4 g/dL (32.0-36.0); MEAN CORPUSCULAR VOLUME 96.1 fL (83.0-99.0); MEAN PLATELET VOLUME 12.7 fL (9.4-12.3); PLATELET COUNT,PLT 212 K/uL (150-400); RED BLOOD CELL COUNT 4.57 M/uL (4.10-5.30)
[2023-04-01 06:28] LABS: CALCIUM 10.2 mg/dL (8.5-10.1); CARBON DIOXIDE,CO2 23.9 mmol/L (21.0-32.0); CREATININE 1.5 mg/dL (0.6-1.0); EST CRCL DRUG DOSING (CG) 24.27 mL/min; MAGNESIUM 2.1 mg/dL (1.8-2.4); POTASSIUM,K 3.2 mmol/L (3.5-5.1)
[2023-04-01 06:59] LABS: EOSINOPHILS ABSOLUTE MAN 0.31 K/uL (0.00-0.45); EOSINOPHILS PERCENT MAN 2 % (0-6); LYMPHOCYTES ABSOLUTE MAN 0.78 K/uL (1.00-4.80); LYMPHOCYTES PERCENT MAN 5 % (24-44); MONOCYTES ABSOLUTE MAN 1.87 K/uL (0.00-0.80); MONOCYTES PERCENT MAN 12 % (0-8); SEG NEUTROPHILS ABSOLUTE MAN 12.64 K/uL (1.80-7.70); SEG NEUTROPHILS PERCENT MAN 81 % (41-71)
[2023-04-01] MEDS ORDERED: Dextrose 5% in Water 1,000 ML IV SCH (08:00)
[2023-04-01] MEDS: Potassium Chloride 10 MEQ in Premix Bag 1 BAG IV SCH ×4 (08:37→13:52)
[2023-04-01] MEDS ORDERED: Venlafaxine 75 MG Cap.ER PO SCH (09:00)
[2023-04-01] MEDS ORDERED: Metoprolol Succinate 100 MG Tab.ER PO SCH (09:00)
[2023-04-01] MEDS ORDERED: Pantoprazole 40 MG in Sodium Chloride 0.9% 10 ML IVPUSH SCH (10:00)
[2023-04-01 12:00] LABS: TSH ULTRASENSITIVE 0.12 uIU/mL (0.36-3.74)
[2023-04-01] MEDS ORDERED: Iopamidol 755 MG/ML 500 ML Multipack Bottle IVPUSH STA (12:59)
[2023-04-01 14:00] LABS: T4 FREE 1.61 ng/dL (0.76-1.46)
[2023-04-01] MEDS: Azithromycin 500 MG in Sodium Chloride 0.9% 250 ML IV SCH (16:17)
[2023-04-02 00:57] VITALS: BP 147/69; PULSE 76
== END 2023-04-01 22:50 | DRG 178 ==
LOC: MW.ED 08:55 → MW.MS 13:30 → OBSVTOIN 04-01 07:54 → MW.MS 04-01 09:34
PROVIDERS: ADMIT Family Medicine; ATTEND Family Medicine
DX: J69.0 Pneumonitis due to inhalation of food and vomit (principal); I13.0 Hypertensive heart and chronic kidney disease with heart failure and stage 1 through stage 4 chronic kidney disease, or unspecified chronic kidney disease; I48.20 Chronic atrial fibrillation, unspecified; I48.92 Unspecified atrial flutter; N30.01 Acute cystitis with hematuria; Z66 Do not resuscitate; I48.91 Unspecified atrial fibrillation; I50.9 Heart failure, unspecified; I25.10 Atherosclerotic heart disease of native coronary artery without angina pectoris; E78.00 Pure hypercholesterolemia, unspecified; R13.10 Dysphagia, unspecified; N18.9 Chronic kidney disease, unspecified; D72.829 Elevated white blood cell count, unspecified; K21.00 Gastro-esophageal reflux disease with esophagitis, without bleeding; K22.5 Diverticulum of esophagus, acquired; E04.1 Nontoxic single thyroid nodule; Z96.649 Presence of unspecified artificial hip joint; Z95.0 Presence of cardiac pacemaker; Z86.718 Personal history of other venous thrombosis and embolism; Z88.0 Allergy status to penicillin; Z88.1 Allergy status to other antibiotic agents; Z88.8 Allergy status to other drugs, medicaments and biological substances; Z79.82 Long term (current) use of aspirin; Z79.899 Other long term (current) drug therapy; Z95.5 Presence of coronary angioplasty implant and graft; Z79.01 Long term (current) use of anticoagulants; Z87.81 Personal history of (healed) traumatic fracture; Z85.3 Personal history of malignant neoplasm of breast; Z98.49 Cataract extraction status, unspecified eye; Z90.13 Acquired absence of bilateral breasts and nipples; Z11.52 Encounter for screening for COVID-19
CPT/HCPCS: 0241U; 36415; 70450; 70450-26; 70490; 70490-26; 70491; 70491-26; 71045; 71045-26; 71250; 71250-26; 74176; 74176-26; 80048; 80053; 81001; 82803; 82947; 83605; 83735; 83880; 84295; 84439; 84443; 84484; 85025; 85379; 85610; 85730; 87040; 87086; 87651-QW; 93005; 93010; 93970; 93970-26; 96365; 96366; 96367; 96372; 96376; 99283; 99285-25; A9270-GY; C9113; G0378; J0456; J1650; J2543; J3480; J3490; J7030; J7050; J7060; Q9967